=== PATIENT | female | born 1975 | race Caucasian/White ===

== ENCOUNTER 2024-06-01 14:59 | Emergency (ER) | payer SELFPAY ==
[2024-06-01 15:04] VITALS: BP 109/93; PULSE 92; TEMP 36.9; O2SAT 98; BMI 45.7
--- NOTE | 2024-06-01 15:50 | XR_ITS ---
The [address] [address] Patient Name: NADIYA MEZA MRN: [id number] date: 1975 Sex: F Assigned Patient Location: ER Current Patient Location: ER Accession/Order Number: [id number] Exam Date: 06/01/2024 15:40 Report Date: 06/01/2024 16:17 At the request of: RODOLFO BOWERS Procedure: XR knee LT 4V EXAM: XR knee LT 4V HISTORY: felt a pop and c/o pain COMPARISON: None. TECHNIQUE: 4 views of the left knee were obtained. FINDINGS: There is no evidence of an acute fracture or dislocation. The joint spaces are intact. No osteochondral injury is identified. A mild suprapatellar joint effusion is suggested and may be present. The soft tissues otherwise appear unremarkable. XR/XR knee LT 4V IMPRESSION: No acute fracture or dislocation. No significant degenerative changes are present. A mild joint effusion is suggested and may be present. Electronically authenticated by: JENI MENDOZA Date: 06/01/2024 16:17
[2024-06-01] MEDS: HYDROCODONE/ACET 5-325 MG TABLET 1 TAB PO (16:55)
[2024-06-01] MEDS: IBUPROFEN 600 MG TABLET PO (16:55)
[2024-06-01 17:15] VITALS: BP 136/89; PULSE 81; O2SAT 99
--- NOTE | 2024-06-01 18:32 | ED_ITS ---
HPI HPI - Extremity Injury (Lower) General Chief Complaint: Extremity Injury, Lower Stated Complaint: LOWER EXTREMITY PAIN Time Seen by Provider: 06/01/24 16:24 Source: patient and family (ex ) Mode of arrival: walk-in Limitations: no limitations History of Present Illness HPI Narrative: 48-year-old female presents with ex- with complaint of left knee pain. Acute onset when she got out of bed. States she felt a pop and has been having difficulty bearing weight or walking. Locating pain just medial of her kneecap with some associated swelling. There is associated tenderness. Denies any sensory changes, paresthesias. Quality:?As above Severity:?Moderate Timing:?As above, constant Context: Normal setting and activity? Modifying factors:?Pain worse with palpation, movement Associated symptoms: Swelling Related Data Previous Rx's ?Medication ?Instructions ?Recorded hydrocodone 5 mg-acetaminophen 325 1 tab PO Q8H PRN pain 3 days #8 06/01/24 mg tablet tabs ibuprofen 600 mg tablet 600 mg PO Q8H PRN pain #20 tabs 06/01/24 Allergies Allergy/AdvReac Type Severity Reaction Status Date / Time Latex, Natural Rubber Allergy Severe Hives Verified 06/01/24 15:08 Opioid HPI Opioid Management Most Recent Pain and Opioid Data: Last Pain Scale 8 06/01/24 16:55 06/01/24 Last MAR Pain Assessment 06/01/24 16:55 Review of Systems ROS Narrative CONST: Denies activity change, weakness MS: Denies arthralgias, swelling.? Denies myalgias SKIN: Denies color change, wound NEURO: Denies numbness, paresthesias, weakness PFSH PFSH Social History Little interest or pleasure in doing things: not at all Feeling down, depressed, or hopeless: not at all Exam Narrative Exam Narrative: Vital signs noted Nurses notes reviewed CONST: Nontoxic, well appearing, well nourished, in no distress.? HENT: normocephalic, atraumatic. CV: 2+ palpable left DP pulse MS: Left knee: +tenderness,swelling to the area of her knee in between the m edial border of the patella and the medial joint line.? No tenderness to the patella, lateral joint line, posterior fossa.? No ecchymosis, discoloration, crepitus, deformity, instability, warmth.? Active ROM is limited due to pain and swelling, but able to perform to a degree.? Strength 5/5 NEURO: Sensory intact throughout and distal to the injury SKIN: intact, warm, dry.? No wound PSYCHIATRIC: normal mood, affect Constitutional Vital Signs, click to edit/add: Last Vital Signs Temp 98.4 F 06/01/24 15:04 Pulse 81 06/01/24 17:15 Resp 16 06/01/24 17:15 BP 136/89 06/01/24 17:15 Pulse Ox 99 06/01/24 17:15 O2 Del Method Room Air 06/01/24 17:15 Course Vital Signs Vital signs: Vital Signs Temperature 98.4 F 06/01/24 15:04 Pulse Rate 92 H 06/01/24 15:04 Respiratory Rate 20 06/01/24 15:04 Blood Pressure 109/93 H 06/01/24 15:04 Pulse Oximetry 98 06/01/24 15:04 Oxygen Delivery Method Room Air 06/01/24 15:04 Temperature 98.4 F 06/01/24 15:04 Pulse Rate 81 06/01/24 17:15 Respiratory Rate 16 06/01/24 17:15 Blood Pressure 136/89 06/01/24 17:15 Pulse Oximetry 99 06/01/24 17:15 Oxygen Delivery Method Room Air 06/01/24 17:15 MDM - Extremity Injury (Lower) MDM Narrative Medical decision making narrative: This is a pleasant 48-year-old female who presents to the emergency department for evaluation of left knee pain On arrival, afebrile, vital signs stable. On exam, nontoxic, well appearing patient, in no apparent distress. She has swelling, tenderness just medial to the patella. No tenderness to the medial or lateral joint lines, posterior fossa, patella. No instability. Range of motion limited due to pain, but can perform to a degree. Neurovascularly intact. Left knee x-ray imaging, per radiologist reveals no acute findings Favor left knee injury, rule out meniscus injury Fracture, dislocation less likely based on imaging MCL, LCL sprain less likely based on exam History and Record Review Discussion with independent historian: Ex- Management Independent interpretation: Left knee x-ray: No fracture, dislocation, or other acute abnormality noted Re-Evaluation: See ED Course Disposition ? The patient was discharged. Prescriptions sent to pharmacy: [facility] Patient placed in knee immobilizer, given crutches Plan: Patient will be discharged to home. Condition at time of disposition: stable, improved. ? Advised to follow up with referral provider, name and number placed on discharge paperwork. Advised to return for any worsening and/or development of new, concerning signs or symptoms PLEASE NOTE: Portions of the medical record may have been produced using electronic manager advanced and may contain errors with respect to translation of words which may not have been identified prior to finalization of the chart. Imaging Data Right knee x-ray: Radiologist's impression: ITS Impressions Knee X-Ray 06/01/24 15:50 IMPRESSION: No acute fracture or dislocation. No significant degenerative changes are present. A mild joint effusion is suggested and may be present. Electronically authenticated by: JENI MENDOZA Date: 06/01/2024 16:17 Discharge Plan Discharge Stand Alone Forms: Work/School Release Chief Complaint: Extremity Injury, Lower Clinical Impression: Acute pain of left knee Injury of knee, left Qualifiers: Encounter type: initial encounter Qualified Code(s): S89.92XA - Unspecified injury of left lower leg, initial encounter Patient Disposition: Home, Self-Care Time of Disposition Decision: 16:41 Condition: Good Mode of Transportation: Private Vehicle Prescriptions / Home Meds: New hydrocodone-acetaminophen 5-325 mg tablet 1 tab PO Q8H PRN (Reason: pain) 3 Days Qty: 8 0RF ibuprofen 600 mg tablet 600 mg PO Q8H PRN (Reason: pain) Qty: 20 0RF Print Language: Citizen Of [place] Instructions: Knee Pain (ED), P.R.I.C.E. Treatment (ED) Referrals: Deon Allison MD [Physician] - 1 week Discharge Date/Time: 06/01/24 17:15
== END 2024-06-01 17:15 | disposition home or self-care (01) ==
PROVIDERS: Emergency Provider Emergency Medicine; PCP Nurse Practitioner
DX: S89.92XA Unspecified injury of left lower leg, initial encounter (principal); X58.XXXA Exposure to other specified factors, initial encounter; M25.562 Pain in left knee
CPT/HCPCS: 73564; 99284

== ENCOUNTER 2024-06-24 08:16 | Outpatient (OUT) | payer BC, SELFPAY ==
--- NOTE | 2024-06-24 08:20 | MR_ITS ---
[place] [id number] Patient Name: NADIYA MEZA MRN: [id number] date: 1975 Sex: F Assigned Patient Location: MRI Current Patient Location: MRI Accession/Order Number: [id number] Exam Date: 06/24/2024 08:40 Report Date: 06/24/2024 11:59 At the request of: EM RAMOS Procedure: MR knee LT wo con EXAMINATION: MR knee LT wo con HISTORY: Internal Derangement Of Left Knee COMPARISON: No relevant comparison available. TECHNIQUE: A complete multi-planar MRI was performed. FINDINGS: MEDIAL COMPARTMENT MEDIAL MENISCUS: Oblique tear extending into the inferior surface of the posterior horn. CARTILAGE: No visible defect. BONES: r large area of bone edema in the medial aspect of the medial femoral condyle measuring 2.8 x 1.2 cm coronal image 18 and 3.1 cm in AP dimension sagittal image 23 MCL AND MEDIAL CAPSULE: Normal medial collateral ligament and medial capsule. LATERAL COMPARTMENT LATERAL MENISCUS: Suspected vertical tear of the body is visualized on sagittal image 8 coronal image 19 CARTILAGE: No visible defect. BONES: No marrow pathology, fracture, or significant arthropathy. LCL/POSTEROLAT COMPLEX: Normal lateral collateral ligament, fascicles, lateral capsule and ligaments. ANTERIOR COMPARTMENT PATELLA: No marrow pathology, fracture, or significant arthropathy. CARTILAGE: No visible defect. TENDONS: Normal. EFFUSION: None. No synovitis or loose bodies. ACL: Mild edema consistent with a diffuse strain PCL: Findings are most consistent with a proximal partial tear. MENISCOFEMORAL: Normal meniscofemoral ligaments. OTHER: Negative. MR/MR knee LT wo con IMPRESSION: Large area of bone edema in the medial aspect of the medial femoral condyle Oblique tear posterior horn medial meniscus Suspected vertical tear body of the lateral meniscus Partial tear of the proximal posterior cruciate ligament Strain of the anterior cruciate ligament Electronically authenticated by: SUREKHA CHRISTIANSON Date: 06/24/2024 11:59
--- OUTSIDE RECORDS SUMMARY | 2024-06-24 08:22 | XMS_ITS | CCD ---
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 Name Role Phone Zulay Berrios Unavailable Yris Shepard Unavailable Jean-Paul Owen Unavailable ZULAY BERRIOS Attending Unavailable ZULAY BERRIOS Consulting Unavailable AGUSTINA, ZULAY Primary Care Unavailable AGUSTINA, ZULAY Admitting Unavailable AGUSTINA, ZULAY Attending Unavailable AGUSTINA, ZULAY Consulting Unavailable AGUSTINA, ZULAY Primary Care Unavailable AGUSTINA, ZULAY Admitting Unavailable AGUSTINA, ZULAY Admitting Unavailable AGUSTINA, ZULAY Attending Unavailable ZULAY BERRIOS Consulting Unavailable AGUSTINA, ZULAY Primary Care Unavailable ANUP RODRIGUEZ Attending Unavailable ANUP RODRIGUEZ Admitting Unavailable KAROL LANDEROS Unavailable AGUSTINA, ZULAY Primary Care Unavailable ANUP RODRIGUEZ Consulting Unavailable Bambi Chavira Primary Care Provid er BAMBI RODRIGUEZ Primary Care Unavailable KAROL GARCIA Attending Unavailab VallecilloCBambi Primary Care Provider Laron Marquez MD Attending Provider Bambi Rodriguez Primary Care Unavailable Asaad, Imad Admitting Unavailable Asaad, Imad Attending Unavailable Bambi Rodriguez Primary Care Unavailable Asaad, Imad Admitting Unavailable Asaad, Imad Attending Unavailable BAMBI RODRIGUEZ Attending Unavailable BAMBI RODRIGUEZ Referring Unavailable BAMBI RODRIGUEZ Primary Care Unavailable BAMBI RODRIGUEZ Attending Unavailable BAMBI RODRIGUEZ Referring Unavailable BAMBI RODRIGUEZ Primary Care Unavailable Allergies Allergy Classification Reported Allergen(s) Allergy Type Date of Onset Reaction(s) Facility (11 sources) Adhesive agent; Translations: [ADHESIVE] Propensity to adverse reactions to drug 3 Rash [facility] (13 sources) Latex; Translations: [LATEX] Propensity to adverse reactions to drug 2 Anaphylaxis [facility] (3 sources) venom-honey bee; Translations: [venom-honey bee] Allergy to substance 4 Swelling [facility] (1 source) Latex Drug allergy (disorder) 4 [facility] Repository Medications Current Medications Medication Drug Class(es) Dates Sig (Normalized) Sig (Original) acetaminophen 325 mg oral tablet (9 sources) Start: 04-26-2023 take 2 tablets by mouth every six hours as needed for pain acetaminophen (TYLENOL) 325 mg tablet Take 2 tablets (650 mg total) by mouth every 6 (six) hours as needed for pain. 100 tablet 2 04/26/2023 Active acetaminophen 325 mg / HYDROcodone bitartrate 5 mg oral tablet (1 source) Opioid Agonist Start: 06-01-2024 take 1 tablet by mouth every eight hours as needed for pain HYDROcodone-acetam inophen (NORCO) 5-325 mg per tablet Take 1 tablet by mouth every 8 (eight) hours as needed for pain. Max Daily Amount: 3 tablets 06/01/2024 Active [id number] actuat albuterol 0.09 mg/actuat metered dose inhaler (9 sources) beta2-Adrenergic Agonist take 2 puff(s) by inhalation every six hours as needed for wheezing albuterol (PROVENTIL HFA;VENTOLIN HFA) 90 mcg/actuation inhaler Inhale 2 puffs every 6 (six) hours as needed for wheezing. Active amLODIPine 5 mg oral tablet (7 sources) Dihydropyridine Calcium Channel Mary Start: 10-16-2021 take 1 tablet by mouth every twenty-four hours amLODIPine Besylate 5 MG 1 tablet Orally Once a day for 30 days Oct, Active Start: 10-16-2021 take 1 tablet by lazaro th every twenty-four hours amLODIPine Besylate 2.5 MG 1 tablet Orally Once a day for 30 day(s) Oct, Active ascorbic acid 500 mg oral tablet (5 sources) Vitamin C Start: 02-27-2023 take 1 tablet by mouth in the morning, then take 1 tablet by mouth at mealtime ascorbic acid (VITAMIN C) 500 mg tablet Indications: Iron deficiency anemia due to chronic blood loss Take 1 tablet (500 mg total) by mouth in the morning and 1 tablet (500 mg total) in the evening. Take with meals. 60 tablet 3 02/27/2023 Active cetirizine hydrochloride 10 mg oral capsule (2 sources) Histamine-1 Receptor Antagonist Start: 03-26-2024 take 1 capsule by mouth once daily as needed Cetirizine (Zyrtec) 10 mg capsule Active 10 MG PO Daily as needed March 26, 2024 12:00am clotrimazole 0.01 mg/mg topical ointment (8 sources) Azole Antifungal Start: 12-13-2020 Alevazol 1 % 1 application Externally Twice a day for 28 day(s) Dec, Active Start: 12-13-2020 esomeprazole 40 mg delayed release oral capsule (14 sources) Proton Pump Inhibitor Start: 06-08-2024 take 1 capsule by mouth once daily before breakfast esomeprazole (NexIUM) 40 mg capsule Indications: GERD without esophagitis Take 1 capsule (40 mg total) by mouth every morning before breakfast. 90 capsule 1 06/08/2024 Active Start: 03-26-2024 take 1 capsule by [facility] twice daily Esomeprazole Magnesium (Nexium) 20 mg capsule,delayed release(DR/EC) Active 20 MG PO Twice daily March 26, 2024 12:00am Start: 12-04-2023 End: 06-08-2024 take 1 capsule by mouth once daily before breakfast esomeprazole (NexIUM) 40 mg capsule Indications: GERD without esophagitis take 1 capsule by mouth every morning before breakfast 90 capsule 1 02/11/2024 06/08/2024 Discontinued (Reorder) Start: 02-27-2023 End: 06-03-2023 take 1 capsule by mouth once daily before breakfast esomeprazole (NexIUM) 40 mg capsule Indications: gastroesophageal reflux disease Take 1 capsule (40 mg total) by mouth every morning before breakfast Indications: gastroesophageal reflux disease. 90 capsule 1 06/03/2023 Active ferrous sulfate 325 mg oral tablet (20 sources) Start: 05-14-2024 End: 06-08-2024 take 1 tablet by mouth twice daily at mealtime FeroSuL 325 mg (65 mg iron) tablet Indications: Microcytic anemia TAKE 1 TABLET BY MOUTH TWICE DAILY (IN THE MORNING and IN THE EVENING) WITH MEALS 60 tablet 3 05/14/2024 06/08/2024 Discontinued (Therapy completed) Start: 03-26-2024 take 2 tablets by mo [facility] once daily Ferrous Sulfate (Ferosul) 325 mg (65 mg iron) tablet Active 325 MG PO March 26, 2024 12:00am take 2 tablets daily Start: 12-09-2023 End: 05-14-2024 take 1 tablet by mouth in the morning, then take 1 tablet by mouth at mealtime ferrous sulfate 325 (65 FE) mg tablet Indications: Microcytic anemia Take 1 tablet (325 mg total) by mouth in the morning and 1 tablet (325 mg total) in the evening. Take with meals. 60 tablet 3 12/09/2023 05/14/2024 Discontinued Start: 02-27-2023 take 1 tablet by lazaro in the morning, then take 1 tablet by mouth at mealtime ferrous sulfate 325 (65 FE) mg EC tablet Indications: Iron deficiency anemia due to chronic blood loss Take 1 tablet (325 mg total) by mouth in the morning and 1 tablet (325 mg total) in the evening. Take with meals. 60 tablet 3 02/27/2023 Active Start: 04-10-2021 take 1 tablet by lazaro every twelve hours Ferrous Sulfate 325 (65 Fe) MG 1 tablet Orally bid for 30 day(s) Mar, Not-Taking Start: 04-10-2021 take 1 tablet by lazaro twice daily Ferrous Sulfate 325 (65 Fe) MG 1 tablet Orally bid for 30 day(s) Mar, Not-Taking Start: 04-10-2021 take 1 tablet by lazaro twice daily Ferrous Sulfate 325 (65 Fe) MG 1 tablet Orally bid for 30 day(s) Mar, Active ibuprofen 600 mg oral tablet (10 sources) Nonsteroidal Anti-inflammatory Drug Start: 06-01-2024 take 1 tablet by mouth every eight hours as needed for pain ibuprofen (MOTRIN) 600 mg tablet Take 1 tablet (600 mg total) by mouth every 8 (eight) hours as needed for pain. 06/01/2024 Active Start: 01-24-2024 End: 06-08-2024 take 1 tablet by mouth three times daily ibuprofen (MOTRIN) 800 mg tablet Take 1 tablet (800 mg total) by mouth 3 (three) times a day. 21 tablet 01/24/2024 06/08/2024 Discontinued (Therapy completed) Start: 04-26-2023 take 1 tablet by lazaro th every eight hours as needed for pain ibuprofen (MOTRIN) 800 mg tablet Take 1 tablet (800 mg total) by mouth every 8 (eight) hours as needed for pain. 30 tablet 0 04/26/2023 Active losartan potassium 100 mg oral tablet (20 sources) Angiotensin 2 Receptor Mary Start: 06-08-2024 take 1 tablet by mouth in the morning losartan (COZAAR) 100 mg tablet Indications: hypertension Take 1 tablet (100 mg total) by mouth in the morning. Indications: high blood pressure. 90 tablet 1 06/08/2024 Active Start: 12-04-2023 End: 06-08-2024 take 1 tablet by mouth in the morning losartan (COZAAR) 100 mg tablet Indications: hypertension Take 1 tablet (100 mg total) by mouth in the morning. Indications: high blood pressure. 90 tablet 1 12/04/2023 06/08/2024 Discontinued (Reorder) Start: 02-27-2023 End: 06-03-2023 take 1 tablet by mouth in the morning losartan (COZAAR) 100 mg tablet Indications: hypertension Take 1 tablet (100 mg total) by mouth in the morning. Indications: high blood pressure. 90 tablet 1 06/03/2023 Active Start: 08-17-2020 take 1 tablet by lazaro th every twenty-four hours Losartan Potassium 100 MG 1 tablet Orally Once a day for 30 days Aug, Active 24 hr metoprolol succinate 25 mg extended release oral tablet (20 sources) beta-Adrenergic Mary Start: 12-04-2023 End: 03-16-2024 take 1 tablet by mouth every twenty-four hours at bedtime metoprolol succinate XL (TOPROL XL) 25 mg 24 hr tablet Indications: Benign essential HTN TAKE 1 TABLET BY MOUTH IN THE MORNING and AT BEDTIME 180 tablet 1 03/16/2024 Active Start: 02-27-2023 End: 06-03-2023 take 1 tablet by mouth every twenty-four hours at bedtime metoprolol succinate XL (TOPROL XL) 25 mg 24 hr tablet Indications: Benign essential HTN Take 1 tablet (25 mg total) by mouth in the morning and at bedtime. 180 tablet 1 06/03/2023 Active Start: 09-13-2020 take 1 tablet by lazaro th every twelve hours Toprol XL 50 MG 1 tablet Orally bid for 30 days September, Active Start: 09-13-2020 take 1 tablet by lazaro th every twenty-four hours Toprol XL 50 MG 1 tablet Orally Once a day for 30 days September, Active microencapsulated potassium chloride 10 meq extended release oral tablet (12 sources) Start: 06-08-2024 potassium chlo ride (K-TAB,KLOR-CON) 10 MEQ CR tablet Indications: Hypokalemia Take 1 tablet (10 mEq total) by mouth in the morning. 90 tablet 1 06/08/2024 Active Start: 12-04-2023 End: 06-08-2024 potassium chloride (K-TAB,KL OR-CON) 10 MEQ CR tablet Indications: Hypokalemia Take 1 tablet (10 mEq total) by mouth in the morning. 90 tablet 1 12/04/2023 06/08/2024 Discontinued (Reorder) Start: 06-03-2023 potassium chlo ride (K-TAB,KLOR-CON) 10 MEQ CR tablet Indications: Hypokalemia Take 1 tablet (10 mEq total) by mouth in the morning. 90 tablet 1 06/03/2023 Active Start: 11-01-2020 End: 06-03-2023 take 1 tablet by mouth in the morning potassium chloride (KLOR-CON M 20) 20 MEQ CR tablet Take 1 tablet (20 mEq total) by mouth in the morning and 1 tablet (20 mEq total) before bedtime. 0 06/03/2023 Discontinued (Reorder) Potassium Chloride 10 mEq tablet,ER particles/crystals (2 sources) Start: 03-26-2024 Potassium Chlo ride 10 mEq tablet,ER particles/crystals Active 10 MEQ PO March 26, 2024 12:00am rosuvastatin 10 mg oral capsule (6 sources) HMG-CoA Reductase Inhibitor Start: 03-26-2024 Rosuvastatin 10 mg t ablet Active 10 MG PO March 26, 2024 12:00am Start: 12-09-2023 take 1 tablet by lazaro th in the morning rosuvastatin (CRESTOR) 10 mg tablet Indications: Mixed hyperlipidemia Take 1 tablet (10 mg total) by mouth in the morning. 90 tablet 3 12/09/2023 Active sertraline 50 mg oral tablet (20 sources) Serotonin Reuptake Inhibitor Start: 06-08-2024 take 1 tablet by mouth once daily at bedtime sertraline (ZOLOFT) 50 mg tablet Indications: anxiety with depression Take 1 tablet (50 mg total) by mouth once daily at bedtime Indications: anxiousness associated with depression. 90 tablet 1 06/08/2024 Active Start: 12-04-2023 End: 06-08-2024 take 1 tablet by mouth once daily at bedtime sertraline (ZOLOFT) 50 mg tablet Indications: anxiety with depression Take 1 tablet (50 mg total) by mouth once daily at bedtime Indications: anxiousness associated with depression. 90 tablet 1 12/04/2023 06/08/2024 Discontinued (Reorder) Start: 02-27-2023 End: 06-03-2023 take 1 tablet by mouth once daily at bedtime sertraline (ZOLOFT) 50 mg tablet Indications: anxiety with depression Take 1 tablet (50 mg total) by mouth once daily at bedtime Indications: anxiousness associated with depression. 90 tablet 1 06/03/2023 Active Start: 08-16-2020 take 1 tablet by lazaro th once daily Sertraline HCl 50 MG 1 tablet Orally Once a day for 90 days Aug, Active terbinafine hydrochloride 10 mg/ml topical cream (4 sources) Allylamine Antifungal Start: 12-04-2023 terbinafine (LamISIL) 1 % cream Indications: Tinea pedis of both feet Apply 1 Application topically in the morning and 1 Application before bedtime. 30 g 3 12/04/2023 Active traZODone hydrochloride 100 mg oral tablet (9 sources) Serotonin Reuptake Inhibitor Start: 12-04-2023 End: 06-08-2024 take 1 tablet by mouth once daily traZODone (DESYREL) 100 mg tablet Indications: Psychophysiological insomnia Take 1 tablet (100 mg total) by mouth nightly. 90 tablet 1 12/04/2023 06/08/2024 Discontinued (Therapy completed) Start: 04-22-2023 take 1 tablet by lazaro th once daily traZODone (DESYREL) 50 mg tablet Indications: Psychophysiological insomnia Take 1 tablet (50 mg total) by mouth nightly. 30 tablet 1 04/22/2023 Active Completed/Discontinued Medications Medication Drug Class(es) Dates Sig (Normalized) Sig (Original) docusate sodium 100 mg oral capsule (1 source) Start: 04-26-2023 End: 06-03-2023 take 1 capsule by mouth in the morning, then take 1 capsule by mouth at bedtime docusate sodium (COLACE) 100 mg capsule Take 1 capsule (100 mg total) by mouth in the morning and 1 capsule (100 mg total) before bedtime. 60 capsule 0 04/26/2023 06/03/2023 Discontinued (Therapy completed) Esomeprazole Magnesium 40 mg capsule,delayed release(DR/EC) (2 sources) Start: 03-26-2024 End: 03-26-2024 Esomeprazole Magnesium 40 mg capsule,delayed release(DR/EC) Discontinued 40 MG PO March 26, 2024 12:00am March 26, 2024 9:47am Problems Active Problems Problem Classification Problem Date Documented Da te Episodic/Chronic Anxiety disorders (18 sources) Generalized anxiety disorder; Translations: [Generalized anxiety disorder] Onset: 1 Resolved: 2 Chronic Deficiency and other anemia (20 sources) Iron deficiency anemia due to blood loss; Translations: [Iron deficiency anemia secondary to blood loss (chronic)] Onset: 3 01-11-2023 Chronic Deficiency and other anemia (1 source) Iron deficiency anemia secondary to blood loss (chronic); Translations: [Iron deficiency anemia secondary to blood loss (chronic)] Onset: 3 Chronic Esophageal disorders (9 sources) Gastroesophageal reflux disease without esophagitis; Translations: [Gastro-esophageal reflux disease without esophagitis] Onset: 4 06-03-2023 Chronic Essential hypertension (20 sources) Essential hypertension; Translations: [Essential (primary) hypertension] Onset: 1 Resolved: 2 Chronic Menopausal disorders (13 sources) Menorrhagia; Translations: [Excessive bleeding in the premenopausal period] Chronic Menstrual disorders (13 sources) Menometrorrhagia; Translations: [Excessive and frequent menstruation with irregular cycle] Chronic Miscellaneous mental health disorders (1 source) Psychophysiologic insomnia; Translations: [Psychophysiologic insomnia] Onset: 4 Chronic Mood disorders (1 source) Depression Onset: 5 Chronic Mood disorders (10 sources) Mood disorders; Translations: [Depression, unspecified] Onset: 4 Resolved: 4 06-03-2023 Nausea and vomiting (5 sources) Nausea and vomiting; Translations: [Nausea with vomiting, unspecified] Onset: 4 03-26-2024 Episodic Other aftercare (1 source) Surgical follow-up; Translations: [Encounter for follow-up examination after completed treatment for conditions other than malignant neoplasm] 06-06-2023 Episodic Other gastrointestinal disorders (11 sources) Diarrhea; Translations: [Diarrhea, unspecified] Episodic Other gastrointestinal disorders (2 sources) Loose stool; Translations: [Other fecal abnormalities] 03-26-2024 Episodic Other gastrointestinal disorders (1 source) Diarrhea, unspecified; Translations: [Diarrhea, unspecified] Onset: 4 Episodic Other non-traumatic joint disorders (1 source) Effusion of joint of left knee; Translations: [Effusion, left knee] 06-08-2024 Episodic Skin and subcutaneous tissue infections (2 sources) Cutaneous abscess of trunk, unspecified; Translations: [Abscess] Onset: 4 Episodic Unclassified (3 sources) CONTACT W/AND (SUSP) EXPOS COVID-19; Translations: [CONTACT W/AND (SUSP) EXPOS COVID-19] Onset: 1 Unclassified (1 source) Wound Check Onset: 4 Unclassified (1 source) Annual Exam Onset: 4 Viral infection (3 sources) COVID-19; Translations: [COVID-19] Onset: 2 Resolved: 2 Past or Other Problems Problem Classification Problem Date Documented Da te Episodic/Chronic Biliary tract disease (9 sources) Acute cholecystitis; Translations: [Acute cholecystitis] Onset: 09-13-2021 Resolved: 06-06-2023 09-13-2021 Episodic Complications of surgical procedures or medical care (9 sources) Leakage of bile; Translations: [Other postprocedural complications and disorders of digestive system] Onset: 09-15-2021 Resolved: 06-06-2023 09-15-2021 Episodic Deficiency and other anemia (11 sources) Microcytic anemia; Translations: [Iron deficiency anemia, unspecified] Onset: 01-11-2023 06-03-2023 Episodic Deficiency and other anemia (1 source) Iron deficiency anemia, unspecified; Translations: [Iron deficiency anemia, unspecified] Onset: 01-11-2023 Episodic Fluid and electrolyte disorders (8 sources) Hypokalemia; Translations: [Hypokalemia] Onset: 03-13-2021 Resolved: 03-13-2021 Episodic Immunizations and screening for infectious disease (1 source) Contact with and (suspected) exposure to other viral communicable diseases Onset: 05-18-2021 Resolved: 05-18-2021 Episodic Mycoses (1 source) Tinea pedis; Translations: [Tinea pedis] Onset: 12-04-2023 Episodic Noninfectious gastroenteritis (1 source) Noninfective gastroenteritis and colitis, unspecified Onset: 03-13-2021 Resolved: 03-13-2021 Episodic Nonspecific chest pain (4 sources) Chest pain, unspecified; Translations: [CHEST PAIN UNSPECIFIED] Onset: 05-29-2021 Episodic Other aftercare (1 source) 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; 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] Onset: 05-30-2021 Episodic Other and unspecified benign neoplasm (9 sources) Polyp of sigmoid colon; Translations: [Polyp of colon] Onset: 12-19-2022 12-19-2022 Episodic Other gastrointestinal disorders (4 sources) Other fecal abnormalities; Translations: [Abnormal feces] Onset: 12-04-2023 03-26-2024 Episodic Other screening for suspected conditions (not mental disorders or infectious disease) (10 sources) Patient encounter status; Translations: [Encounter for screening for malignant neoplasm of colon] Onset: 11-27-2022 Resolved: 06-06-2023 11-27-2022 Episodic Other upper respiratory disease (1 source) Nasal congestion Onset: 11-21-2021 Resolved: 11-21-2021 Episodic Unclassified (1 source) CONTACT W/AND (SUSP) EXPOS COVID-19; Translations: [CONTACT W/AND (SUSP) EXPOS COVID-19] Onset: 01-09-2021 Unclassified (9 sources) Onset: 06-03-2023 Resolved: 06-08-2024 06-03-2023 Results Test Name Value Interpretation Reference Range Facility Pathology Request for Lab Co rpon 04-15-2024 Pathology Request for Lab Radha Normal [facility] Comment on above: Order Comment: PATHO LOGY GI SPECIMEN Result Comment: See report. Scanned copy available in EMR. PERFORMED BY: [place] [address] PATHOLOGIST CIVIL ENGINEERING TEACHER CALE GALLAGHER M.D. Performed By: #### P ATH TO [facility] #### [address] C reactive protein [Mass/vol ume] in Serum or PlasmaOrdered By: Laron Marquez on 03-26-2024 CRP [Mass/Vol] C reactive protein [Mass/volume] in Serum or Plasma High 0.0-0.5 [facility] C-Reactive Proteinon 024 C-Reactive Protein 2.3 mg/dL High 0.0-0.5 [facility] Comment on above: Performed By: #### C RP, TSH3, ESR #### [facility] [address] [place] [address] #### CELIAC, HIV SCREEN #### [facility] , Calprotectin, Fecalon 2023 Calprotectin, Fecal 128 High 0-120 [facility] Comment on above: Result Comment: Conc entration Interpretation Follow-Up < 5 - 50 ug/g Normal None >50 -120 ug/g Borderline Re-evaluate in 4-6 weeks >120 ug/g Abnormal Repeat as clinically indicated Performed at: - [facility] [id number] [place] Selector: Júnior Ellis MD, Phone: [phone] PERFORMED BY: [address] [id number] PATHOLOGIST CIVIL ENGINEERING TEACHER CALE GALLAGHER M.D. Performed By: #### C DT #### [address] #### CALPROTECT #### [facility] , Celiacon 03-26-2024 Deamidated Gliadin Abs, IgA 4 Normal 0-19 [facility] Comment on above: Result Comment: Nega tive 0 - 19 Weak Positive 20 - 30 Moderate to Strong Positive >30 Performed By: #### C RP, TSH3, ESR #### [place] [address] [place] #### CELIAC, HIV SCREEN #### [facility] , Deamidated Gliadin Abs, IgG 2 Normal 0-19 [facility] Comment on above: Result Comment: Nega tive 0 - 19 Weak Positive 20 - 30 Moderate to Strong Positive >30 Performed By: #### C RP, TSH3, ESR #### [address] #### CELIAC, HIV SCREEN #### [facility] , Endomysial Antibody IgA Negative Normal Negative [facility] Comment on above: Performed By: #### C RP, TSH3, ESR #### [place] [address] [place] #### CELIAC, HIV SCREEN #### [facility] , Immunoglobulin A, Qn, Serum 355 mg/dL High 87-352 [facility] Comment on above: Result Comment: Perf ormed at: - [facility] [address] [id number] [place] Selector: Toni Doyle PhD, Phone: [phone] Performed By: #### C RP, TSH3, ESR #### [place] [address] [place] #### CELIAC, HIV SCREEN #### [facility] , T-Transglutaminase (tTG) IgA <2 Normal 0-3 [facility] Comment on above: Result Comment: Nega tive 0 - 3 Weak Positive 4 - 10 Positive >10 Tissue Transglutaminase (tTG) has been identified as the endomysial antigen. Studies have demonstr- ated that endomysial IgA antibodies have over 99% specificity for gluten sensitive enteropathy. Performed By: #### C RP, TSH3, ESR #### [place] [address] [place] #### CELIAC, HIV SCREEN #### [facility] , T-Transglutaminase (tTG) IgG 3 Normal 0-5 [facility] Comment on above: Result Comment: Nega tive 0 - 5 Weak Positive 6 - 9 Positive >9 Performed By: #### C RP, TSH3, ESR #### [place] [address] [place] #### CELIAC, HIV SCREEN #### [facility] , Clostridioides difficile tox in B tcdB gene [Presence] in Stool by JAMIE with probe deteOrdered By: Laron Marquez on 03-26-2024 C. difficile toxin B tcdB gene JAMIE+probe Ql (Stl) Clostridioides difficile toxin B tcdB gene [Presence] in Stool by JAMIE with probe dete Negative [facility] Comment on above: Testing performed by RT-PCR Clostridium Difficileon 03-13 Clostridium Difficile Positive Invalid Interpretation Code Negative [facility] Comment on above: Order Comment: Resul ts called at 0909 on 03/27/24 Result Comment: Test ing performed by RT-PCR PERFORMED BY: [place] [address] PATHOLOGIST CIVIL ENGINEERING TEACHER CALE GALLAGHER M.D. Performed By: #### C DT #### [place] [address] [place] #### CALPROTECT #### [facility] , Erythrocyte Sedimentation Ra anika 03-26-2024 ESR (Bld) [Velocity] 38 mm/h High 0-19 [facility] Comment on above: Result Comment: PERF ORMED BY: [place] [address] PATHOLOGIST CIVIL ENGINEERING TEACHER CALE GALLAGHER M.D. Performed By: #### C RP, TSH3, ESR #### [address] #### CELIAC, HIV SCREEN #### [facility] , Erythrocyte sedimentation ra te by Photometric methodOrdered By: Imad Asaad on 03-26-2024 ESR Photometric method (Bld) [Velocity] Erythrocyte sedimentation rate by Photometric method High 0-19 [facility] HIV 1/O/2 Antigen/Antibodyon 03-26-2024 HIV Screen 4th Generation Non-Reactive Normal Non Reactive [facility] Comment on above: Result Comment: HIV- 1/HIV-2 antibodies and HIV-1 p24 antigen were NOT detected. There is no laboratory evidence of HIV infection. HIV Negative Performed at: [address] [id number] [place] Selector: Toni Doyle PhD, Phone: [phone] PERFORMED BY: [place] [address] PATHOLOGIST CIVIL ENGINEERING TEACHER CALE GALLAGHER M.D. Performed By: #### C RP, TSH3, ESR #### [address] #### CELIAC, HIV SCREEN #### [facility] , Thyroid Stimulating Hormoneo n 03-26-2024 TSH Qn 1.21 m[IU]/L Normal 0.45-5.33 [facility] Comment on above: Result Comment: PERF ORMED BY: [place] [address] PATHOLOGIST CIVIL ENGINEERING TEACHER CALE GALLAGHER M.D. Performed By: #### C RP, TSH3, ESR #### [place] [address] [place] #### CELIAC, HIV SCREEN #### [facility] , Thyrotropin [Units/volume] i n Serum or PlasmaOrdered By: Imad Asaad on 03-26-2024 TSH Qn Thyrotropin [Units/volume] in Serum or Plasma 0.45-5.33 [facility] SUPERFICIAL WOUND CULTUREon 01-24-2024 Bacteria identified Aer cx Nom (Wound) GRAM STAIN >25 WHITE BLOOD CELLS/LPF 0 SQUAMOUS EPITHELIAL CELLS/LPF MANY GRAM POSITIVE COCCI IN PAIRS CULTURE RESULTS NO GROWTH 2 DAYS Normal [facility] Comment on above: Performed By: #### 6 32-0 #### [facility] ([id number]) [address] [place] [address], [address] [place] [address] Surgical Pathologyon 023 Surgical Pathology Normal [facility] Comment on above: Result Comment: [facility] [address] [place] [address] Surgical Pathology Consultation Patient Name:NADIYA MEZA:1975 (Age: 47)Gender:FTaken:04/26/2023Reported:05/09/2023hysician(s):Sander Lopes M.D. ([phone])Copy To: Rec. #:[id number]: #[id number] Final Pathologic Diagnosis Uterus, cervix and bilateral fallopian tubes, total hysterectomy and bilateral salpingectomy: Uterus (158 g) showing three intramural leiomyomas (0.7 to 1.5 cm) with focal hyaline fibrosis. Abnormal (underdeveloped) secretory endometrium with focal stromal breakdown (see comment). Benign cervix showing mild to moderate acute and chronic cervicitis at T-zone with focal erosion, accompanied by squamous metaplasia and reactive changes. Benign bilateral fallopian tubes with fimbriated end, showing paratubal cyst and focal tubal epithelial hyperplasia. No malignancy, dysplasia or epithelial atypia identified. Comment These changes are nonspecific and may reflect luteal phase abnormalities (failure of secretory endometrium to fully mature due to corpus luteum deficiency), exogenous progestins or endometrium near polyp or overlying leiomyoma. Clinical correlation recommended. Report Electronically Signed Out ao/3Aarabella Rodrigez MD Interpretation performed at [facility], [address] [place] [address], License number: [id number]. Clinical History Abnormal uterine bleeding. Gross Description Received in formalin labeled SUSANA, uterus, bilateral tubes is a hysterectomy specimen consisting of uterus with attached cervix and detached fimbriated fallopian tube segments. The 158 g uterus is 11.0 cm from fundus to ectocervical mucosa, 6.5 cm from cornu to cornu and 4.8 cm from anterior to posterior. The serosa is pham-weller, smooth and glistening. The cervix is 4.5 cm in length by 3.4 cm in diameter. The ectocervical mucosa is pink-pham, focally hemorrhagic and glistening, with a centrally located 0.8 cm slitlike os. The uterus is bivalved to reveal a triangular endometrial cavity, 4.5 cm in length by 2.2 cm in width, sectioned to reveal a depth of 0.1 cm. The 2.0 cm myometrium is pham and moderately trabeculated with three well-circumscribed intramural nodules, 0.7, 1.0 and 1.5 cm. The detached fimbriated fallopian tube segments are 3.0 x 0.4 cm and 1.0 x 0.3 cm. Both have a pham-weller, smooth serosa and both are sectioned to reveal a pinpoint lumen. Stonemason Apprentice sections are submitted in cassettes A-K, as follows: A- anterior cervix B- posterior cervix C- posterior serosal shaves D-E- anterior full thickness sections F-G- posterior full thickness sections H- fimbriated end of the shorter fallopian tube, serially sectioned I- cross sections of the shorter fallopian tube J- fimbriated end of the longer fallopian tube, serially sectioned K- cross sections of the longer fallopian tube (11,ss,[id number], m6) [facility]04/26/2023EAK Specimen(s) Received Uterus, cervix, bilateral fallopian tubes Fee Codes(s): 1; 19514 COVID/FLU/RSV RT-PCRon 11-21 SARS-CoV-2 (COVID-19) RNA JAMIE+probe Ql (Unsp spec) Positive [employer] Other COVID/FLU/RSV RT-PCR Negative [employer] Other PROF 14(COMP METB)on 022 Albumin [Mass/Vol] 3.3 g/dL Critically low 3.4-5.0 Th [facility] Comment on above: Performed By: #### C MP #### [facility] [address] [place] [address] Dr. Sharif Sierra Albumin/Globulin [Mass ratio] 0.7 {ratio} Normal [facility] Comment on above: Performed By: #### C MP #### [facility] [address] [address] [address] Sharif Sierra ALP [Catalytic activity/Vol] 164 U/L Critically high 46-116 [facility] Comment on above: Performed By: #### C MP #### [facility] [address] [place] [address] Dr. Sharif Sierra ALT [Catalytic activity/Vol] 40 U/L Normal 14-59 [facility] Comment on above: Performed By: #### C MP #### [facility] [address] [place] [address] Dr. Sharif Sierra Anion gap [Moles/Vol] 10.4 mmol/L Normal [facility] Comment on above: Performed By: #### C MP #### [facility] [address] [place] [address] Dr. Sharif Sierra AST [Catalytic activity/Vol] 19 U/L Normal 15-37 [facility] Comment on above: Performed By: #### C MP #### [facility] [address] [place] [address] Dr. Sharif Sierra Bilirubin [Mass/Vol] 0.2 mg/dL Normal 0.2-1.0 [facility] Comment on above: Performed By: #### C MP #### [facility] [address] [place] [address] Dr. Sharif Sierra Calcium [Mass/Vol] 9.0 mg/dL Normal 8.5-10.1 [facility] Comment on above: Performed By: #### C MP #### [facility] [address] [place] [address] Dr. Sharif Sierra Chloride [Moles/Vol] 104 mmol/L Normal 98-107 [facility] Comment on above: Performed By: #### C MP #### [facility] [address] [address] [address] Sharif Sierra CO2 [Moles/Vol] 29.5 mmol/L Normal 21.0-32.0 [facility] Comment on above: Performed By: #### C MP #### [facility] [address] [address] [address] Sharif Sierra Creatinine [Mass/Vol] 0.96 mg/dL Normal 0.55-1.02 [facility] Comment on above: Performed By: #### C MP #### [facility] [address] [address] [address] Sharif Sierra EGFR-AF DUTCH >60 Normal >=60 [facility] Comment on above: Performed By: #### C MP #### [facility] [address] [place] [address] Dr. Sharif Sierra EGFR-NON AF DUTCH >60 Normal >=60 [facility] Comment on above: Performed By: #### C MP #### [facility] [address] [place] [address] Dr. Sharif Sierra Globulin (S) [Mass/Vol] 4.8 g/dL Normal [facility] Comment on above: Performed By: #### C MP #### [facility] [address] [place] [address] Dr. Sharif Sierra Glucose [Mass/Vol] 98 mg/dL Normal 74-106 [facility] Comment on above: Performed By: #### C MP #### [facility] [address] [place] [address] Dr. Sharif Sierra Potassium [Moles/Vol] 3.9 mmol/L Normal 3.5-5.1 [facility] Comment on above: Performed By: #### C MP #### [facility] [address] [place] [address] Dr. Sharif Sierra Protein [Mass/Vol] 8.1 g/dL Normal 6.4-8.2 [facility] Comment on above: Performed By: #### C MP #### [facility] [address] [address] [address] Sharif Sierra Sodium [Moles/Vol] 140 mmol/L Normal 136-145 [facility] Comment on above: Performed By: #### C MP #### [facility] [address] [place] [address] Dr. Sharif Sierra Urea nitrogen [Mass/Vol] 8.0 mg/dL Normal 7.0-18.0 [facility] Comment on above: Performed By: #### C MP #### [facility] [address] [place] [address] Dr. Sharif Sierra Urea nitrogen/Creatinin e [Mass ratio] 8.3 mg/mg Normal [facility] Comment on above: Performed By: #### C MP #### [facility] [address] [place] [address] Dr. Sharif Sierra CARDIAC EMETERIO ADMITon 022 CK [Catalytic activity/Vol] 34 U/L Normal 30-135 [facility] Comment on above: Performed By: #### C GIOVANY SANDOVAL #### [facility] [address] [place] [address] Dr. Sharif Sierra CK.MB [Mass/Vol] ng/mL Normal <=2.37 [facility] Comment on above: Performed By: #### C JOSE SANDOVALDM #### [facility] [address] [place] [address] Dr. Sharif Sierra HSTROP 4.5 pg/mL Normal 4.0-35.5 [facility] Comment on above: Result Comment: CUT- OFF POINTS HAVE BEEN ESTABLISHED BASED ON THE FOURTH UNIVERSAL DEFINITIONS OF MYOCARDIAL INFARCTION. THE UPPER REFERENCE LIMIT (URL) OF TROPONIN, DEFINED THE 99TH PERCENTILE OF cTnI DISTRIBUTION IN A REFERENCE POPULATION, HAS BEEN CONFIRMED THE DECISION THRESHOLD FOR [place] DIAGNOSIS. Performed By: #### C JAIME, JOSEDM #### [facility] [address] [place] [address] Dr. Sharif Sierra RAFFAELE 27.0 ng/mL Normal <=61.5 [facility] Comment on above: Performed By: #### C JAIME, JOSEDM #### [facility] [address] [address] [address] Sharif Sierra CBC AUTO DIFFon 05-29-2021 BASO # 0.1 103/ul Normal 0.0-0.1 [facility] Comment on above: Performed By: #### C BC #### [facility] [address] [address] [address] Sharif Sierra Basophils/100 WBC (Bld) 0.7 % Normal 0.2-2.0 [facility] Comment on above: Performed By: #### C BC #### [facility] [address] [address] [address] Sharif Sierra EO # 0.1 103/ul Normal 0.0-0.7 [facility] Comment on above: Performed By: #### C BC #### [facility] [address] [place] [address] Dr. Sharif Sierra Eosinophils/100 WBC (Bld) 0.4 % Critically low 0.9-7.0 [facility] Comment on above: Performed By: #### C BC #### [facility] [address] [place] [address] Dr. Sharif Sierra Erythrocyte distribution width (RBC) [Ratio] 18.6 % Critically high 11.0-15.0 [facility] Comment on above: Performed By: #### C BC #### [facility] [address] [place] [address] Dr. Sharif Sierra Hematocrit (Bld) [Volume fraction] 38.5 % Normal 36.0-48.0 [facility] Comment on above: Performed By: #### C BC #### [facility] [address] [place] [address] Dr. Sharif Sierra Hemoglobin (Bld) [Mass/Vol] 12.5 g/dL Normal 12.0-16.0 [facility] Comment on above: Performed By: #### C BC #### [facility] [address] [place] [address] Dr. Sharif Sierra IG # 0.07 10e3/ul Critically high 0.00-0.[address] [facility] Comment on above: Performed By: #### C BC #### [facility] [address] [place] [address] Dr. Sharif Sierra IG % 0.4 % Normal 0.0-0.5 [facility] Comment on above: Performed By: #### C BC #### [facility] [address] [place] [address] Dr. Sharif Sierra LYMPH # 2.7 103/ul Normal 1.2-3.8 [facility] Comment on above: Performed By: #### C BC #### [facility] [address] [place] [address] Dr. Sharif Sierra Lymphocytes/100 WBC (Bld) 17.0 % Critically low 20.5-60.0 [facility] Comment on above: Performed By: #### C BC #### [facility] [address] [place] [address] Dr. Sharif Sierra MANUAL DIFF REQ NO Normal [facility] Comment on above: Performed By: #### C BC #### [facility] [address] [place] [address] Dr. Sharif Sierra MCH (RBC) [Entitic mass] 26.5 pg Critically low 26.7-34.0 [facility] Comment on above: Performed By: #### C BC #### [facility] [address] [place] [address] Dr. Sharif Sierra MCHC (RBC) [Mass/Vol] 32.5 g/dL Normal 29.9-35.2 [facility] Comment on above: Performed By: #### C BC #### [facility] [address] [place] [address] Dr. Sharif Sierra MCV (RBC) [Entitic vol] 81.6 fL Normal 81.0-99.0 [facility] Comment on above: Performed By: #### C BC #### [facility] [address] [place] [address] Dr. Sharif Sierra MONO # 1.5 103/ul Critically high 0.3-0.8 [facility] Comment on above: Performed By: #### C BC #### [facility] [address] [place] [address] Dr. Sharif Sierra Monocytes/100 WBC (Bld) 9.3 % Normal 1.7-12.0 [facility] Comment on above: Performed By: #### C BC #### [facility] [address] [place] [address] Dr. Sharif Sierra NEUT # 11.4 103/ul Critically high 1.4-6.5 [facility] Comment on above: Performed By: #### C BC #### [facility] [address] [place] [address] Dr. Sharif Sierra Neutrophils/100 WBC (Bld) 72.2 % Normal 43.0-75.0 [facility] Comment on above: Performed By: #### C BC #### [facility] [address] [place] [address] Dr. Sharif Sierra Platelet mean volume (Bld) [Entitic vol] 11.4 fL Normal 9.5-13.5 [facility] Comment on above: Performed By: #### C BC #### [facility] [address] [place] [address] Dr. Sharif Sierra PLT 306 103/ul Normal 150-450 [facility] Comment on above: Performed By: #### C BC #### [facility] [address] [place] [address] Dr. Sharif Sierra RBC 4.72 106/ul Normal 4.20-5.40 [facility] Comment on above: Performed By: #### C BC #### [facility] [address] [place] [address] Dr. Sharif Sierra WBC 15.8 103/ul Critically high 4.0-11.0 [facility] Comment on above: Performed By: #### C BC #### [facility] [address] [place] [address] Dr. Sharif Sierra D-DIMERon 05-29-2021 D-DIMER 0.33 mg/L FEU Normal 0.19-0.50 [facility] Comment on above: Performed By: #### D DIM #### [facility] [address] [place] [address] Dr. Sharif Sierra D-DIMER COMMENTS SEE BELOW Normal [facility] Comment on above: Result Comment: Incr eases in D-Dimer concentration observed with thromboembolic events can be variable due to localization, size, and age of the thrombus. Therefore, a thromboembolic event cannot be diagnosed with certainty on the basis of the reference range. D-Dimers may also be elevated for a variety of disorders including: advanced age, , coronary disease, cancer, liver disease, infection, inflammation, hematoma, DIC, trauma, post-surgery, diabetes, thrombolytic or anticoagulant therapy, stress, and generalized hospitalization. Performed By: #### D DIM #### [facility] [address] [place] [address] Dr. Sharif Sierra PROF 14(COMP METB)on 022 Albumin [Mass/Vol] 3.2 g/dL Critically low 3.5-5.0 [facility] Comment on above: Performed By: #### C GIOVANY SANDOVAL #### [facility] [address] [place] [address] Dr. Sharif Sierra Albumin/Globulin [Mass ratio] 0.8 {ratio} Normal [facility] Comment on above: Performed By: #### C GIOVANY SANDOVAL #### [facility] [address] [place] [address] Dr. Sharif Sierra ALP [Catalytic activity/Vol] 128 U/L Critically high 38-126 [facility] Comment on above: Performed By: #### C JOSE SANDOVALDM #### [facility] [address] [place] [address] Dr. Sharif Sierra ALT [Catalytic activity/Vol] 14 U/L Normal 9-52 [facility] Comment on above: Performed By: #### C GIOVANY SANDOVAL #### [facility] [address] [place] [address] Dr. Sharif Sierra Anion gap [Moles/Vol] 8.5 mmol/L Normal [facility] Comment on above: Performed By: #### C GIOVANY SANDOVAL #### [facility] [address] [place] [address] Dr. Sharif Sierra AST [Catalytic activity/Vol] 3 U/L Critically low 14-36 [facility] Comment on above: Performed By: #### C JAIME, CMADM #### [facility] [address] [place] [address] Dr. Sharif Sierra Bilirubin [Mass/Vol] 0.2 mg/dL Normal 0.2-1.3 [facility] Comment on above: Performed By: #### C JAIME, CMADM #### [facility] [address] [place] [address] Dr. Sharif Sierra Calcium [Mass/Vol] 8.9 mg/dL Normal 8.4-10.2 [facility] Comment on above: Performed By: #### C JAIME, CMADM #### [facility] [address] [place] [address] Dr. Sharif Sierra Chloride [Moles/Vol] 101 mmol/L Normal 98-107 [facility] Comment on above: Performed By: #### C JAIME, CMADM #### [facility] [address] [place] [address] Dr. Sharif Sierra CO2 [Moles/Vol] 28.9 mmol/L Normal 22.0-30.0 [facility] Comment on above: Performed By: #### C JAIME, JOSEDM #### [facility] [address] [place] [address] Dr. Sharif Sierra Creatinine [Mass/Vol] 0.90 mg/dL Normal 0.52-1.04 [facility] Comment on above: Performed By: #### C JAIME, JOSEDM #### [facility] [address] [place] [address] Dr. Sharif Sierra EGFR-AF DUTCH >60 Normal >=60 [facility] Comment on above: Performed By: #### C JAIME, CMADM #### [facility] [address] [place] [address] Dr. Sharif Sierra EGFR-NON AF DUTCH >60 Normal >=60 [facility] Comment on above: Performed By: #### C JAIME, CMADM #### [facility] [address] [place] [address] Dr. Sharif Sierra Globulin (S) [Mass/Vol] 4.2 g/dL Normal [facility] Comment on above: Performed By: #### C JAIME, JOSEDM #### [facility] [address] [place] [address] Dr. Sharif Sierra Glucose [Mass/Vol] 109 mg/dL Critically high 74-106 [facility] Comment on above: Performed By: #### C JAIME, JOSEDM #### [facility] [address] [place] [address] Dr. Sharif Sierra Potassium [Moles/Vol] 3.4 mmol/L Normal 3.4-5.0 [facility] Comment on above: Performed By: #### C JAIME, JOSEDM #### [facility] [address] [place] [address] Dr. Sharif Sierra Protein [Mass/Vol] 7.4 g/dL Normal 6.1-8.2 [facility] Comment on above: Performed By: #### C JOSE SANDOVALDM #### [facility] [address] [place] [address] Dr. Sharif Sierra Sodium [Moles/Vol] 135 mmol/L Critically low 137-145 [facility] Comment on above: Performed By: #### C JAIME, JOSEDM #### [facility] [address] [place] [address] Dr. Sharif Sierra Urea nitrogen [Mass/Vol] 17.0 mg/dL Normal 7.0-17.0 [facility] Comment on above: Performed By: #### C JAIME, JOSEDM #### [facility] [address] [place] [address] Dr. Sharif Sierra Urea nitrogen/Creatinin e [Mass ratio] 18.9 mg/mg Normal [facility] Comment on above: Performed By: #### C JAIME, JOSEDM #### [facility] [address] [place] [address] Dr. Sharif Sierra TROPONIN, HIGH SENSITIVITYon 05-29-2021 HSTROP 5.4 pg/mL Normal 4.0-35.5 [facility] Comment on above: Result Comment: CUT- OFF POINTS HAVE BEEN ESTABLISHED BASED ON THE FOURTH UNIVERSAL DEFINITIONS OF MYOCARDIAL INFARCTION. THE UPPER REFERENCE LIMIT (URL) OF TROPONIN, DEFINED THE 99TH PERCENTILE OF cTnI DISTRIBUTION IN A REFERENCE POPULATION, HAS BEEN CONFIRMED THE DECISION THRESHOLD FOR [place] DIAGNOSIS. Performed By: #### H STROPN #### [facility] [address] [place] [address] Dr. Sharif Sierra XR CHEST 1 Von 05-29-2021 SARS-CoV-2 (COVID-19) Ab IA Ql EXAM: Portable chest REASON FOR EXAM: Chest pain. Positive Covid 19 test on 05/19/2021. TECHNIQUE: A portable frontal view of the chest was obtained. COMPARISON: None. FINDINGS: The lungs are well-inflated and clear. There is scattered calcified granulomata. The heart and mediastinum are normal. There is no mass or pathologic adenopathy. Osseous structures are normal. IMPRESSION: No acute cardiopulmonary process. Electronically authenticated by: KAROL LANDEROS Date: 2021-05-29 08:58 Normal [facility] COVID Quick Testingon 2021 Result Positive [employer] Other CBC AUTO DIFFon 03-13-2021 BASO # 0.1 103/ul Normal 0.0-0.1 [facility] Comment on above: Performed By: #### C BC #### [facility] [address] [place] [address] Dr. Sharif Sierra Basophils/100 WBC (Bld) 1.0 % Normal 0.2-2.0 [facility] Comment on above: Performed By: #### C BC #### [facility] [address] [place] [address] Dr. Sharif Sierra EO # 0.1 103/ul Normal 0.0-0.7 [facility] Comment on above: Performed By: #### C BC #### [facility] [address] [place] [address] Dr. Sharif Sierra Eosinophils/100 WBC (Bld) 0.6 % Critically low 0.9-7.0 [facility] Comment on above: Performed By: #### C BC #### [facility] [address] [place] [address] Dr. Sharif Sierra Erythrocyte distribution width (RBC) [Ratio] 16.9 % Critically high 11.0-15.0 [facility] Comment on above: Performed By: #### C BC #### [facility] [address] [place] [address] Dr. Sharif Sierra Hematocrit (Bld) [Volume fraction] 35.5 % Critically low 36.0-48.0 [facility] Comment on above: Performed By: #### C BC #### [facility] [address] [place] [address] Dr. Sharif Sierra Hemoglobin (Bld) [Mass/Vol] 10.6 g/dL Critically low 12.0-16.0 [facility] Comment on above: Performed By: #### C BC #### [facility] [address] [place] [address] Dr. Sharif Sierra IG # 0.09 10e3/ul Critically high 0.00-0.[address] [facility] Comment on above: Performed By: #### C BC #### [facility] [address] [place] [address] Dr. Sharif Sierra IG % 0.7 % Critically high 0.0-0.5 [facility] Comment on above: Performed By: #### C BC #### [facility] [address] [place] [address] Dr. Sharif Sierra LYMPH # 4.0 103/ul Critically high 1.2-3.8 [facility] Comment on above: Performed By: #### C BC #### [facility] [address] [place] [address] Dr. Sharif Sierra Lymphocytes/100 WBC (Bld) 32.7 % Normal 20.5-60.0 [facility] Comment on above: Performed By: #### C BC #### [facility] [address] [place] [address] Dr. Sharif Sierra MANUAL DIFF REQ NO Normal [facility] Comment on above: Performed By: #### C BC #### [facility] [address] [place] [address] Dr. Sharif Sierra MCH (RBC) [Entitic mass] 24.1 pg Critically low 26.7-34.0 [facility] Comment on above: Performed By: #### C BC #### [facility] [address] [place] [address] Dr. Sharif Sierra MCHC (RBC) [Mass/Vol] 29.9 g/dL Normal 29.9-35.2 [facility] Comment on above: Performed By: #### C BC #### [facility] [address] [place] [address] Dr. Sharif Sierra MCV (RBC) [Entitic vol] 80.9 fL Critically low 81.0-99.0 [facility] Comment on above: Performed By: #### C BC #### [facility] [address] [place] [address] Dr. Sharif Sierra MONO # 1.5 103/ul Critically high 0.3-0.8 [facility] Comment on above: Performed By: #### C BC #### [facility] [address] [place] [address] Dr. Sharif Sierra Monocytes/100 WBC (Bld) 12.1 % Critically high 1.7-12.0 [facility] Comment on above: Performed By: #### C BC #### [facility] [address] [place] [address] Dr. Sharif Sierra NEUT # 6.5 103/ul Normal 1.4-6.5 [facility] Comment on above: Performed By: #### C BC #### [facility] [address] [place] [address] Dr. Sharif Sierra Neutrophils/100 WBC (Bld) 52.9 % Normal 43.0-75.0 [facility] Comment on above: Performed By: #### C BC #### [facility] [address] [place] [address] Dr. Sharif Sierra Platelet mean volume (Bld) [Entitic vol] 12.4 fL Normal 9.5-13.5 [facility] Comment on above: Performed By: #### C BC #### [facility] [address] [place] [address] Dr. Sharif Sierra PLT 375 103/ul Normal 150-450 [facility] Comment on above: Performed By: #### C BC #### [facility] [address] [place] [address] Dr. Sharif Sierra RBC 4.39 106/ul Normal 4.20-5.40 [facility] Comment on above: Performed By: #### C BC #### [facility] [address] [place] [address] Dr. Sharif Sierra WBC 12.2 103/ul Critically high 4.0-11.0 [facility] Comment on above: Performed By: #### C BC #### [facility] [address] [place] [address] Dr. Sharif Sierra PROF 14(COMP METB)on 021 Albumin [Mass/Vol] 3.1 g/dL Critically low 3.5-5.0 [facility] Comment on above: Performed By: #### C MP #### [facility] [address] [place] [address] Dr. Sharif Sierra Albumin/Globulin [Mass ratio] 0.7 {ratio} Normal [facility] Comment on above: Performed By: #### C MP #### [facility] [address] [place] [address] Dr. Sharif Sierra ALP [Catalytic activity/Vol] 120 U/L Normal 38-126 [facility] Comment on above: Performed By: #### C MP #### [facility] [address] [place] [address] Dr. Sharif Sierra ALT [Catalytic activity/Vol] 15 U/L Normal 9-52 [facility] Comment on above: Performed By: #### C MP #### [facility] [address] [place] [address] Dr. Sharif Sierra Anion gap [Moles/Vol] 11.7 mmol/L Normal [facility] Comment on above: Performed By: #### C MP #### [facility] [address] [place] [address] Dr. Sharif Sierra AST [Catalytic activity/Vol] 15 U/L Normal 14-36 [facility] Comment on above: Performed By: #### C MP #### [facility] [address] [address] [address] Sharif Sierra Bilirubin [Mass/Vol] 0.2 mg/dL Normal 0.2-1.3 [facility] Comment on above: Performed By: #### C MP #### [facility] [address] [address] [address] Sharif Sierra Calcium [Mass/Vol] 8.8 mg/dL Normal 8.4-10.2 [facility] Comment on above: Performed By: #### C MP #### [facility] [address] [address] [address] Sharif Sierra Chloride [Moles/Vol] 102 mmol/L Normal 98-107 [facility] Comment on above: Performed By: #### C MP #### [facility] [address] [address] [address] Sharif Sierra CO2 [Moles/Vol] 29.2 mmol/L Normal 22.0-30.0 [facility] Comment on above: Performed By: #### C MP #### [facility] [address] [address] [address] Sharif Sierra Creatinine [Mass/Vol] 0.93 mg/dL Normal 0.52-1.04 [facility] Comment on above: Performed By: #### C MP #### [facility] [address] [address] [address] Sharif Sierra EGFR-AF DUTCH >60 Normal >=60 [facility] Comment on above: Performed By: #### C MP #### [facility] [address] [address] [address] Sharif Sierra EGFR-NON AF DUTCH >60 Normal >=60 [facility] Comment on above: Performed By: #### C MP #### [facility] [address] [address] [address] Sharif Sierra Globulin (S) [Mass/Vol] 4.5 g/dL Normal [facility] Comment on above: Performed By: #### C MP #### [facility] [address] [address] [address] Sharif Sierra Glucose [Mass/Vol] 83 mg/dL Normal 74-106 [facility] Comment on above: Performed By: #### C MP #### [facility] [address] [address] [address] Sharif Sierra Potassium [Moles/Vol] 3.9 mmol/L Normal 3.4-5.0 [facility] Comment on above: Performed By: #### C MP #### [facility] [address] [address] [address] Sharif Sierra Protein [Mass/Vol] 7.6 g/dL Normal 6.1-8.2 [facility] Comment on above: Performed By: #### C MP #### [facility] [address] [address] [address] Sharif Sierra Sodium [Moles/Vol] 139 mmol/L Normal 137-145 [facility] Comment on above: Performed By: #### C MP #### [facility] [address] [address] [address] Sharif Sierra Urea nitrogen [Mass/Vol] 8.0 mg/dL Normal 7.0-17.0 [facility] Comment on above: Performed By: #### C MP #### [facility] [address] [address] [address] Sharif Sierra Urea nitrogen/Creatinin e [Mass ratio] 8.6 mg/mg Normal [facility] Comment on above: Performed By: #### C MP #### [facility] [address] [address] [address] Sharif Sierra Covid-19 PCR (CVDTB)on 12-13 SARS-CoV-2 (COVID-19) RNA JAMIE+probe Ql (Unsp spec) Not detected Normal NOT DETECTED [facility] Comment on above: Result Comment: This test is not yet approved or cleared by the [place] FDA. When there are no FDA-approved or cleared tests available, and other criteria are met, FDA can make tests available under an emergency access mechanism called an Emergency Use Authorization (EUA). The EUA for this test is supported by the Equity Research Analyst of Health and Human Service's (HHS's) declaration that circumstances exist to justify the emergency use of in vitro diagnostics for the detection and/or diagnosis of the virus that causes COVID-19. This EUA will remain in effect (meaning this test can be used) for the duration of the COVID-19 declaration justifying emergency of IVDs, unless it is terminated or revoked by FDA (after which the test may no longer be used). When diagnostic testing is negative, the possibility of a false negative should be considered in the context of a patient's recent exposures and the presence of clinical signs and symptoms consistent with SARS-CoV-2. Performed By: #### C [facility] #### [facility] [address] [place] [address] Micky Vicente Vital Signs Date Time Vital Sign Value Performing Clinician Facility 06-08-2024 08:14-0500 Body height 154.9 cm Bambi Rodriguez TOOL AND FIXTURE REPAIRER-INTELLIGENCE OPERATIONS SPECIALIST Work Phone: [facility] 06-08-2024 08:14-0500 Body mass index (BMI) [Ratio] 46.67 kg/m2 Bambi Rodriguez APRN-INTELLIGENCE OPERATIONS SPECIALIST Work Phone: [facility] 06-08-2024 08:14-0500 Body temperature 98.2 [degF] Bambi Mcclainillo TOOL AND FIXTURE REPAIRER-INTELLIGENCE OPERATIONS SPECIALIST Work Phone: [facility] 06-08-2024 08:14-0500 Body weight 112.04 kg Bambi Rodriguez TOOL AND FIXTURE REPAIRER-INTELLIGENCE OPERATIONS SPECIALIST Work Phone: [facility] 06-08-2024 08:14-0500 Diastolic blood pressure 78 mm[Hg] Bambi Mcclainpaulette POOLEN-INTELLIGENCE OPERATIONS SPECIALIST Work Phone: [facility] 06-08-2024 08:14-0500 Heart rate 103 /min Bambi Mcclainpaulette POOLEN-INTELLIGENCE OPERATIONS SPECIALIST Work Phone: [facility] 06-08-2024 08:14-0500 Respiratory rate 18 /min Bambi Rodriguez TOOL AND FIXTURE REPAIRER-INTELLIGENCE OPERATIONS SPECIALIST Work Phone: [facility] 06-08-2024 08:14-0500 SaO2% (BldA) [Mass fraction] 99 % Bambi Rodriguez TOOL AND FIXTURE REPAIRER-INTELLIGENCE OPERATIONS SPECIALIST Work Phone: [facility] 06-08-2024 08:14-0500 Systolic blood pressure 120 mm[Hg] Bambi Rodriguez APRN-INTELLIGENCE OPERATIONS SPECIALIST Work Phone: [facility] 03-26-2024 09:52-0500 Body height 157.48 cm [facility] 03-26-2024 09:52-0500 Body mass index (BMI) [Ratio] 43.2 kg/m2 [facility] 03-26-2024 09:52-0500 Body weight 107.24 kg [facility] 03-26-2024 09:52-0500 Diastolic blood pressure 81 mm[Hg] [facility] 03-26-2024 09:52-0500 Heart rate 98 /min [facility] 03-26-2024 09:52-0500 Systolic blood pressure 116 mm[Hg] [facility] 06-06-2023 14:30-0500 Body height 154.9 cm Tavia Jacques MD Work Phone: [facility] 06-06-2023 14:30-0500 Body mass index (BMI) [Ratio] 43.93 kg/m2 Tavia Jacques MD Work Phone: [facility] 06-06-2023 14:30-0500 Body weight 105.46 kg Tavia Jacques MD Work Phone: [facility] 06-06-2023 14:30-0500 Diastolic blood pressure 86 mm[Hg] Tavia Jacques MD Work Phone: [facility] 06-06-2023 14:30-0500 Heart rate 102 /min Tavia Jacques MD Work Phone: [facility] 06-06-2023 14:30-0500 Systolic blood pressure 123 mm[Hg] [facility] Jacques [facility] 06-03-2023 11:24-0500 Body height 154.9 cm Bambi Rodriguez APRN-LUIS Work [facility] 06-03-2023 11:24-0500 Body mass index (BMI) [Ratio] 43.93 kg/m2 Bambi Rodriguez APRN-LUIS [facility] 06-03-2023 11:24-0500 Body temperature 98.6 [degF] Bambi Rodriguez APRN-LUIS Work [facility] 06-03-2023 11:24-0500 Body weight 105.46 kg Bambi Rodriguez APRN-LUIS Work [facility] 06-03-2023 11:24-0500 Diastolic blood pressure 80 mm[Hg] Bambi Rodriguez APRN-LUIS Work Phone[facility] 06-03-2023 11:24-0500 Heart rate 91 /min Bambi Rodriguez APRN-LUIS Work Phone[facility] 06-03-2023 11:24-0500 SaO2% (BldA) [Mass fraction] 97 % Bambi Rodriguez APRN-LUIS Work Phone: [employer] 06-03-2023 11:24-0500 Systolic blood pressure 110 mm[Hg] Bambi Rodriguez APRN-LUIS Work Phone: [employer] 11-21-2021 11:00-0400 Body height 157.48 cm Zulay Berrios Other [employer] Other 11-21-2021 11:00-0400 Body mass index (BMI) [Ratio] 39.32 kg/m2 Zulay Berrios Other [employer] Other 11-21-2021 11:00-0400 Body temperature 98.7 [degF] Zulay Berrios Other [employer] Other 11-21-2021 11:00-0400 Body weight 97.52 kg Zulay Berrios Other [employer] Other 11-21-2021 11:00-0400 Diastolic blood pressure 90 mm[Hg] Zulay Berrios Other [employer] Other 11-21-2021 11:00-0400 Respiratory rate 16 /min Zulay Berrios Other [employer] Other 11-21-2021 11:00-0400 SaO2% (BldA) [Mass fraction] 99 % Zulay Berrios Other [employer] Other 11-21-2021 11:00-0400 Systolic blood pressure 155 mm[Hg] Zulay Berrios Other [employer] Other 10-16-2021 11:00-0400 Body height 157.48 cm Zulay Berrios Other [employer] Other 10-16-2021 11:00-0400 Body mass index (BMI) [Ratio] 39.47 kg/m2 Zulay Berrios Other [employer] Other 10-16-2021 11:00-0400 Body temperature 98.2 [degF] Zulay Crooksault Other [employer] Other 10-16-2021 11:00-0400 Body weight 97.89 kg Zulay Crooksault Other [employer] Other 10-16-2021 11:00-0400 Diastolic blood pressure 109 mm[Hg] Zulay Berrios Other [employer] Other 10-16-2021 11:00-0400 Respiratory rate 16 /min Zulay Berrios Other [employer] Other 10-16-2021 11:00-0400 SaO2% (BldA) [Mass fraction] 98 % Zulay Berrios Other [employer] Other 10-16-2021 11:00-0400 Systolic blood pressure 162 mm[Hg] Zulay Berrios Other [employer] Other 05-18-2021 11:00-0500 Body height 157.48 cm Yris Shepard Other [employer] Other 05-18-2021 11:00-0500 Body mass index (BMI) [Ratio] 39.32 kg/m2 Yris Shepard Other [employer] Other 05-18-2021 11:00-0500 Body temperature 97.6 [degF] Yris Shepard Other [employer] Other 05-18-2021 11:00-0500 Body weight 97.52 kg Yris Shepard Other [employer] Other 05-18-2021 11:00-0500 Diastolic blood pressure 96 mm[Hg] Yris Sehpard Other [employer] Other 05-18-2021 11:00-0500 SaO2% (BldA) [Mass fraction] 98 % Yris Shepard Other [employer] Other 05-18-2021 11:00-0500 Systolic blood pressure 153 mm[Hg] Yris Shepard Other [employer] Other 03-13-2021 11:00-0400 Body height 157.48 cm Zulay Crooksault Other [employer] Other 03-13-2021 11:00-0400 Body mass index (BMI) [Ratio] 38.95 kg/m2 Zulay Agustina Other [employer] Other 03-13-2021 11:00-0400 Body temperature 97.8 [degF] Zulay Agustina Other [employer] Other 03-13-2021 11:00-0400 Body weight 96.62 kg Zulay Crooksault Other [employer] Other 03-13-2021 11:00-0400 Diastolic blood pressure 91 mm[Hg] Zulay Agustina Other [employer] Other 03-13-2021 11:00-0400 Respiratory rate 18 /min Zulay Agustina Other [employer] Other 03-13-2021 11:00-0400 SaO2% (BldA) [Mass fraction] 99 % Zulay Agustina Other [employer] Other 03-13-2021 11:00-0400 Systolic blood pressure 161 mm[Hg] Zulay Agustina Other [employer] Other Encounters Encounter Date Encounter Type Care Provider Facility Start: 06-08-2024 End: 06-08-2024 ambulatory BAMBI Gabriella RODRIGUEZ [facility] Start: 06-08-2024 End: 06-08-2024 Office outpatient visit 25 minutes Bambi Gabriella Rodriguez TOOL AND FIXTURE REPAIRER-INTELLIGENCE OPERATIONS SPECIALIST Work Phone: [facility] Comment on above: Benign essential HTN (Primary Dx); GERD without esophagitis; Hypokalemia; Anxiety and depression; Effusion, left knee Start: 05-13-2024 End: 05-14-2024 Refill Bambi Rodriguez TOOL AND FIXTURE REPAIRER-INTELLIGENCE OPERATIONS SPECIALIST Work Phone: [facility] Comment on above: Microcytic anemia Start: 04-15-2024 End: 04-15-2024 ambulatory Bambi Rodriguez Facility:[facility] Start: 03-26-2024 End: 03-26-2024 Patient encounter procedure Bambi Rodriguez ATMOSPHERIC PHYSICIST-C Work Phone: [facility] [place] Work Phone: Start: 03-26-2024 End: 03-26-2024 ambulatory Bambi Rodriguez ATMOSPHERIC PHYSICIST-C Work Phone: [facility] Work Phone: Start: 03-26-2024 End: 03-26-[address] [facility] Work Phone: Start: 03-26-2024 End: 03-26-2024 Patient encounter procedure [facility] Work Phone: Start: 03-15-2024 End: 03-16-2024 Refill Bambi Gabriella Rodriguez TOOL AND FIXTURE REPAIRER-INTELLIGENCE OPERATIONS SPECIALIST Work Phone: [facility] Comment on above: Benign essential HTN Start: 02-11-2024 End: 02-11-2024 Refill Bambi Gabriella Rodriguez TOOL AND FIXTURE REPAIRER-INTELLIGENCE OPERATIONS SPECIALIST Work Phone: [facility] Comment on above: GERD without esophag itis Start: 01-24-2024 End: 01-24-2024 Emergency department patient visit [facility] Start: 12-04-2023 End: 12-04-2023 ambulatory [facility] Start: 12-04-2023 Encounter for genera l adult medical examination without abnormal findings [facility] Start: 08-01-2023 Orders Only Bambi caldwell TOOL AND FIXTURE REPAIRER-INTELLIGENCE OPERATIONS SPECIALIST Work Phone: Mirela Saleh [facility] Start: 06-27-2023 Orders Only Bambi caldwell TOOL AND FIXTURE REPAIRER-INTELLIGENCE OPERATIONS SPECIALIST Work Phone: Mirela Saleh [facility] Start: 06-21-2023 Telephone encounter Ade Ruiz [facility] Start: 06-06-2023 End: 06-06-2023 Postop follow up visit related to original px Tavia Jacques MD Work Phone: [facility] Comment on above: Postop check (Primar y Dx) Start: 06-03-2023 End: 06-03-2023 Office outpatient visit 25 minutes Bambi J [facility] TOOL AND FIXTURE REPAIRER-INTELLIGENCE OPERATIONS SPECIALIST Work Phone: [facility] Comment on above: Benign essential HTN (Primary Dx); GERD without esophagitis; Anxiety and depression; Hypokalemia; Microcytic anemia Start: 06-18-2022 End: 06-18-2022 ambulatory Zulay Berrios Other [employer] Other Start: 06-18-2022 Telephone encounter Zulayara Adamsl t [facility] Start: 03-26-2022 End: 03-26-2022 ambulatory Zulayara Berrios Other [employer] Other Start: 03-26-2022 Telephone encounter Zulay Breaul t [facility] Start: 02-08-2022 End: 02-08-2022 ambulatory Zulayara Berrios Other [employer] Other Start: 02-08-2022 Telephone encounter Zulay Brejesical t [facility] Start: 11-21-2021 Office outpatient visit 15 minutes Zulayara Berrios [facility] Start: 11-21-2021 End: 11-22-2021 ambulatory ZULAYARA BERRIOS [employer] Other Start: 10-31-2021 End: 10-31-2021 ambulatory Zulayara Berrios Other [employer] Other Start: 10-31-2021 Telephone encounter Zulay Brejesical t [facility] Start: 10-29-2021 End: 10-29-2021 ambulatory Zulayara Berrios Other [employer] Other Start: 10-29-2021 Telephone encounter Zulay Breaul t [facility] Start: 10-16-2021 End: 10-16-2021 ambulatory Zulayara Berrios Other [employer] Other Start: 10-16-2021 Office outpatient visit 15 minutes Zulayara Berrios [facility] Start: 09-25-2021 End: 09-25-2021 ambulatory Zulayara Berrios Other [employer] Other Start: 09-25-2021 Telephone encounter Zulay Breaul t [facility] Start: 07-18-2021 End: 07-18-2021 ambulatory Zulayara Berrios Other [employer] Other Start: 07-18-2021 Telephone encounter Zulay Breaul t [facility] Start: 06-13-2021 End: 06-13-2021 ambulatory Zulayara Berrios Other [employer] Other Start: 06-13-2021 Telephone encounter Zulay sun [facility] Start: 06-01-2021 End: 06-01-2021 ambulatory Jean-Paul Owen Other [employer] Other Start: 06-01-2021 Telephone encounter Jean-Paul WILKERSON [facility] [employer] [facility] Start: 05-29-2021 End: 05-29-2021 ambulatory ANUP RODRIGUEZ Facility: Start: 05-18-2021 End: 05-18-2021 ambulatory Yris Shepard Other [employer] Other Start: 05-18-2021 Office outpatient visit 15 minutes Yris Shepard [facility] Start: 03-13-2021 Office outpatient visit 15 minutes Zulay Berrios [facility] Start: 03-13-2021 End: 03-14-2021 ambulatory ZULAY BERRIOS [place] [employer] Other Start: 01-09-2021 End: 01-10-2021 ambulatory ZULAY BERRIOS Facility: Procedures Date Procedure Procedure Detail Performing Clinician Start: 04-15-2024 Colonoscopy Bambi clifton TOOL AND FIXTURE REPAIRER-INTELLIGENCE OPERATIONS SPECIALIST Work Phone: Start: 12-04-2023 Adult depression scr eening assessment Bambi Rodriguez TOOL AND FIXTURE REPAIRER-INTELLIGENCE OPERATIONS SPECIALIST Work Phone: Start: 06-03-2023 Adult depression scr eening assessment Bambi Rodriguez TOOL AND FIXTURE REPAIRER-INTELLIGENCE OPERATIONS SPECIALIST Work Phone: Start: 03-26-2023 Microscopic observat ion [Identifier] in Cervix by Cyto stain Bambi Rodriguez TOOL AND FIXTURE REPAIRER-INTELLIGENCE OPERATIONS SPECIALIST Work Phone: Start: 12-19-2022 Colonoscopy Bambi Ca valentinoo TOOL AND FIXTURE REPAIRER-INTELLIGENCE OPERATIONS SPECIALIST Work Phone: Plan of Treatment Date Care Activity Detail Author Start: 04-15-2034 Screening for malignant neoplasm of colon Colonoscopy [facility] Start: 01-23-2034 DTaP,Tdap and Td Vaccines (2 - Td or Tdap) DTaP,Tdap and Td Vaccines (2 - Td or Tdap) [facility] Start: 12-19-2032 Screening for malignant neoplasm of colon Colonoscopy [facility] Start: 03-26-2026 Screening for malignant neoplasm of cervix Pap Smear [facility] Start: 06-08-2025 Adult BMI Screening Adult BMI Screening [facility] Start: 06-08-2025 [facility] Screening [facility] [facility] Start: 01-23-2025 Adult BMI Screening Adult BMI Screening [facility] Start: 01-23-2025 Tobacco Screening Tobacco Screening [facility] Start: 12-07-2024 End: 12-07-2024 Patient encounter procedure 12/07/2024 8:00 AM EDT Office Visit [facility] Internal Medicine - Family Medicine [address] [place] [address] Bambi Rodriguez, TOOL AND FIXTURE REPAIRER-INTELLIGENCE OPERATIONS SPECIALIST [address] [place] [address] [facility] Internal Medicine - Family Medicine Start: 12-03-2024 Adult BMI Follow Up Plan Adult BMI Follow Up Plan [facility] Start: 12-03-2024 Depression Screening Depression Screening [facility] Start: 06-08-2024 End: 06-08-2024 Patient encounter procedure 06/08/2024 8:00 AM EST [facility] [address] [place] [address] Bambi Rodriguez, TOOL AND FIXTURE REPAIRER-INTELLIGENCE OPERATIONS SPECIALIST [address] [place] [address] [facility] Internal Medicine - Family Medicine Start: 06-06-2024 Adult BMI Screening Adult BMI Screening [facility] Start: 06-03-2024 Adult BMI Follow Up Plan Adult BMI Follow Up Plan [facility] Start: 06-03-2024 Adult BMI Screening Adult BMI Screening [facility] Start: 06-03-2024 Depression Screening Depression Screening [facility] Start: 06-03-2024 Tobacco Screening Tobacco Screening [facility] Start: 03-26-2024 End: 03-26-2024 [facility] Start: 01-12-2024 Influenza vaccination Influenza Vaccine [facility] Start: 12-04-2023 End: 12-04-2023 Patient encounter procedure 12/04/2023 8:00 AM EDT Office Visit [facility] Internal Medicine - Family Medicine [address] [place] [address] Bambi Rodriguez, TOOL AND FIXTURE REPAIRER-INTELLIGENCE OPERATIONS SPECIALIST [address] [place] [address] [facility] Internal Medicine - Family Medicine Start: 07-19-2023 End: 07-19-2023 Patient encounter procedure 07/19/2023 11:00 AM EST Office Visit [facility] - Medical Oncology [address] [place] [phone] Rigo Najera MD [address] [place], [place] [id number] [facility] Start: 2023 End: 2023 ambulatory 2023 11:00 AM EST Support Visit [facility] - Medical Oncology [address] [place] [phone] [facility] Start: 06-06-2023 End: 06-06-2023 Patient encounter procedure 06/06/2023 2:50 PM EST Office Visit [facility] Obstetrics[facility]necology [address] [place] [address] Tavia Jacques MD [address] [place] [address] [facility] Start: 01-11-2023 Influenza vaccination Influenza Vaccine [facility] Start: 07-15-1994 DTaP,Tdap and Td Vaccines (1 - Tdap) DTaP,Tdap and Td Vaccines (1 - Tdap) [facility] Endomysial antibody IgA level [facility] Gliadin peptide IgA Ab [Units/volume] in Serum [facility] Gliadin peptide IgG Ab [Units/volume] in Serum [facility] IgA [Mass/volume] in Serum or Plasma [facility] Tissue transglutamin ase IgA Ab [Units/volume] in Serum [facility] Tissue transglutamin ase IgG Ab [Units/volume] in Serum [facility] Immunizations Immunization Date Immunization Notes Care Provider Fa cility 01-24-2024 tetanus toxoid, redu william diphtheria toxoid, and acellular pertussis vaccine, adsorbed Bambiprakash Rodriguez TOOL AND FIXTURE REPAIRER-INTELLIGENCE OPERATIONS SPECIALIST Work Phone: [facility] Payers Date Payer Category Payer Self-pay 2022 Medicaid [id number] 2022 Medicaid [id number] 2022 Blue Cross Blue [facility] Managed Care - Other ANTHEM [id number] 2022 Unknown ANTHEM BCBS OUT OF STATE PPO/TRUST [id number] 2022-Present [phone] [address] [place] [address] [id number] 2022 Unknown [id number] 1975 Unknown [id number] 593 1975 Unknown [id number]. 593 1975 Unknown [id number]. 593 1975 Unknown [id number]. 593 1975 Unknown [id number] [id number]. 1286 1975 Unknown [id number]. 1286 1975 Unknown [id number]. 1286 1959 Unknown [id number] 1959 Unknown [id number] Unknown [id number] 531 Unknown [id number] 531 Social History Date Type Detail Facility Unknown if ever smoked [employer] Other Start: 06-23-2020 End: 06-03-2023 Sex Assigned At [facility] Start: 09-22-2021 [facility] Start: 09-18-1991 End: 09-17-2021 History of tobacco use Current smoker [facility] Start: 09-18-1991 End: 09-17-2021 History of tobacco use Cigarette Smoker [facility] Start: 06-23-2020 End: 09-22-2021 Cigarettes smoked current (pack per day) - [facility] Start: 09-22-2021 Tobacco use and exposure Smokeless tobacco non-user [facility] Start: 06-03-2023 End: 06-08-2024 Alcohol intake Current non-drinker of alcohol (finding) [facility] Adolescent depressio n screening assessment 0 [facility] Start: 1975 Sex Assigned At Not on file [email or web address] Start: 12-16-2014 End: 03-27-2024 Sex Female (finding) [facility] Start: 1975 Sex Assigned At Female F [facility] Goals Date Patient Goal Desired Activity /State Personal health goal Comment on above: Formatting of this n ote might be different from the original. Evaluation of progress towards goal: Safe dc transition home with family support. Clinical Notes 05-18-2021 to 06-08-2024 Bambi Rodriguez APRN-INTELLIGENCE OPERATIONS SPECIALIST - 06/08/2024 8:00 AM EST Note Date & Type Note Facility 06-08-2024 History of Present illness Narrative Images from the original note were not included. [address] [facility] [address] SUBJECTIVE: Patient ID: Nadiya Meza is a 48 y.o. female. Chief Complaint Patient presents with Hypertension Depression Presents for follow up States she has been experiencing left knee pain. Awoke on morning and pain was present. Denies trauma. Went to [facility] on 06/01/24 due to the pain. She is currently using knee immobilizer and using crutches. No weight bearing to LLE. Has appointment with orthopedic today, Dr. Allison. Hypertension This is a chronic problem. The current episode started more than 1 year ago. The problem is controlled. Pertinent negatives include no chest pain, palpitations or shortness of breath. There are no associated agents to hypertension. Risk factors for coronary artery disease include obesity and family history. Past treatments include beta blockers and calcium channel blockers. The current treatment provides significant improvement. There are no compliance problems. Depression Visit: Follow-up Initial visit: Symptoms: no chest pain, no palpitations and no shortness of breath Follow-up visit: Symptoms: decreased concentration, depressed mood, irritability, malaise and muscle tension Frequency: Rarely Severity: Mild Current Treatment: SSRI's Response to treatment: Stable Heartburn She reports no chest pain, no globus sensation or no hoarse voice. This is a chronic problem. The current episode started more than 1 year ago. The problem occurs rarely. The problem has been resolved. The symptoms are aggravated by certain foods and stress. Pertinent negatives include no anemia, fatigue, melena, muscle weakness, orthopnea or weight loss. Risk factors include obesity. She has tried a PPI for the symptoms. The treatment provided significant relief. The following portions of the patient's history were reviewed and updated as appropriate: allergies, current medications, past family history, past medical history, past social history, past surgical history and problem list. Past Surgical History: Procedure Laterality Date BREAST BIOPSY Right 07/27/2016 FIBROADENOMA excisional BREAST LUMPECTOMY Right 2017? COLONOSCOPY N/A 12/19/2022 Performed by Jorge Preciado DO at [facility] CYSTOSCOPY N/A 04/26/2023 Performed by S[facility] Lopes [facility] at [facility]A 09/13/2021 Performed by Karol Thurman DO at [facility] HYSTERECTOMY SALPINGECTOMY N/A 04/26/2023 Performed by Sander Lopes MD at [facility] ENDOSCOPIC RETROGRADE CHOLANGIO-PANCREATOGRAPHY WITH STENT REMOVAL N/A 10/24/2021 Performed by Oswaldo Bentley MD at [facility] ERCP Left Lateral 09/15/2021 Performed by Oswaldo Bentley MD at [facility] HYSTERECTOMY 04/26/2023 TONSILLECTOMY AND ADENOIDECTOMY Childhood TUBAL LIGATION 1999 Past Medical History: Diagnosis Date Acute headache Allergic rhinitis Anemia 09/2021 Pt took self off iron, states didn't work Anxiety and depression Asthma has not used inhaler in a very long time Bile leak, postoperative 09/2021 Post cholecystectomy Cholecystitis, acute with cholelithiasis 09/2021 Chronic headache Daily GERD (gastroesophageal reflux disease) HTN (hypertension) Hypokalemia 09/2021 PONV (postoperative nausea and vomiting) Snores Was to get sleep study years ago, not done due to insurance Visual impairment Wears glasses Immunization History Administered Date(s) Administered Tdap 01/24/2024 REVIEW OF SYSTEMS: Review of Systems Constitutional: Negative for chills and fever. HENT: Negative. Eyes: Negative for visual disturbance. Respiratory: Negative for chest tightness. Gastrointestinal: Negative. Endocrine: Negative. Genitourinary: Negative for menstrual problem and pelvic pain. Musculoskeletal: Positive for arthralgias. Pain left knee Skin: Negative. Allergic/Immunologic: Negative. Neurological: Negative for syncope and facial asymmetry. Hematological: Does not bruise/bleed easily. Psychiatric/Behavioral: Negative. PHYSICAL EXAMINATION: Vitals: 06/08/24 0814 BP: 120/78 BP Site: Left Arm BP Postition: Sitting Pulse: 103 Resp: 18 Temp: 36.8 C (98.2 F) TempSrc: Oral SpO2: 99% Weight: 112 kg (247 lb) Height: 154.9 cm (5' 1 ) Patient noted to have elevated BMI and the following intervention(s) were applied: encouragement to exercise. Physical Exam Vitals and nursing note reviewed. Constitutional: General: She is not in acute distress. Appearance: She is well-developed. She is not diaphoretic. HENT: Head: Normocephalic and atraumatic. Right Ear: Tympanic membrane and external ear normal. Left Ear: Tympanic membrane and external ear normal. Nose: Nose normal. Mouth/Throat: Mouth: Mucous membranes are moist. Pharynx: No oropharyngeal exudate. Eyes: General: Right eye: No discharge. Left eye: No discharge. Conjunctiva/sclera: Conjunctivae normal. Pupils: Pupils are equal, round, and reactive to light. Neck: Thyroid: No thyromegaly. Vascular: No JVD. Cardiovascular: Rate and Rhythm: Normal rate and regular rhythm. Heart sounds: Normal heart sounds. No murmur heard. No friction rub. No gallop. Pulmonary: Effort: Pulmonary effort is normal. Breath sounds: Normal breath sounds. Abdominal: General: Bowel sounds are normal. There is no distension. Palpations: Abdomen is soft. There is no mass. Tenderness: There is no abdominal tenderness. Musculoskeletal: General: Tenderness present. Normal range of motion. Cervical back: Normal range of motion and neck supple. Left lower leg: Edema present. Comments: Left full knee immobilizer Lymphadenopathy: Cervical: No cervical adenopathy. Skin: General: Skin is warm and dry. Capillary Refill: Capillary refill takes less than 2 seconds. Neurological: Mental Status: She is alert and oriented to person, place, and time. Deep Tendon Reflexes: Reflexes are normal and symmetric. Psychiatric: Mood and Affect: Mood normal. Behavior: Behavior normal. Thought Content: Thought content normal. Judgment: Judgment normal. ASSESSMENT/PLAN: Nadiya was seen today for hypertension and depression. Diagnoses and all orders for this visit: Benign essential HTN - losartan (COZAAR) 100 mg tablet; Take 1 tablet (100 mg total) by mouth in the morning. Indications: high blood pressure. GERD without esophagitis - esomeprazole (NexIUM) 40 mg capsule; Take 1 capsule (40 mg total) by mouth every morning before breakfast. Hypokalemia - potassium chloride (K-TAB,KLOR-CON) 10 MEQ CR tablet; Take 1 tablet (10 mEq total) by mouth in the morning. Anxiety and depression - sertraline (ZOLOFT) 50 mg tablet; Take 1 tablet (50 mg total) by mouth once daily at bedtime Indications: anxiousness associated with depression. Effusion, left knee Depression Depression: Not at risk (12/04/2023) PHQ-2 PHQ-2 Score: 0 Stable with sertraline 50 mg oral daily 2. HTN Controlled 120/78 Continue metoprolol succinate 25 mg oral daily -losartan 100 mg oral daily 3. Mixed hyperlipidemia Continue rosuvastatin 10 mg oral daily 4. GERD Limit or avoid trigger foods and beverages. Consider weight loss. Continue esomeprazole 40 mg oral daily 5. Effusion left knee Went to [facility] on 06.01.24 for pain of left knee. Denies trauma. Is non-weight bearing, using crutches. Wearing left knee immobilizer. Has initial appointment with orthopedics today, Dr. Allison. Body mass index is 46.67 kg/m . Patient noted to have elevated BMI and the following intervention(s) were applied: Discussed current weight today. Consider healthy food choices, portion control. Avoid sugary beverages and high concentrated sweets. Routine exercise regimen encouraged. ALL QUESTIONS ANSWERED Total time spent was 30 minutes: Preparing to see the patient (e.g., review of tests) Obtaining and/or reviewing separately obtained history Performing a medically appropriate examination and/or evaluation Counseling and educating the patient/family/caregiver Ordering medications, tests, or procedures Follow-up: Annual With labs CHANTELLE Lopez 06/08/24 0853 documented in this encounter [facility] 03-26-2024 Evaluation note Authored March 26, 2024 10:06am 48-year-old female referred to the GI clinic for evaluation of GERD and diarrhea +chronic heartburn for years not controlled with Nexium 20 mg daily. +chronic diarrhea for years however it got worse since she had cholecystectomy a year ago. She had a colonoscopy a year ago which was unremarkable however no colonic biopsies were done as per patient -Will arrange for EGD to assess for Fournier's. Then we will likely increase PPI dose -Will get Labs including TSH, ESR, CRP, fecal calprotectin HIV ab, Celiac panel, fecal elastase and stool infectious workup -Will arrange for colonoscopy with random colonic biopsies to assess for microscopic colitis -Bile acid diarrhea could be contributing to patient's symptoms. If previous workup is unremarkable will consider cholestyramine [facility] Work Phone: [phone] 808-603502-09-2024 Miscellaneous Notes* Telephone Encounter - Ade Brooks - 06/21/2023 1:41 PM EST CANCELED FOLLOW UP WITH DR. NAJERA SHE IS NO LONGER ANEMIC AND HAD A HYSTERECTOMY. SHE WILL CALL TO RESCHEDULE IF NEEDED [facility] Telephone encounter Note* Telephone Encounter - Ade Brooks - 06/21/2023 1:41 PM EST CANCELED FOLLOW UP WITH DR. NAJERA SHE IS NO LONGER ANEMIC AND HAD A HYSTERECTOMY. SHE WILL CALL TO RESCHEDULE IF NEEDED [facility]01-25-2024 History of Present illness Narrative* Tavia Jacques MD - 06/06/2023 2:50 PM EST POSTOPERATIVE VISIT Nadiya Meza is a 47 y.o. s/p RAH/BSO, cysto. She is doing well. Her pain is well controlled. No vaginal bleeding. Using nightly estrogen cream. Medications Current Outpatient Medications: acetaminophen (TYLENOL) 325 mg tablet, Take 2 tablets (650 mg total) by mouth every 6 (six) hours as needed for pain., Disp: 100 tablet, Rfl: 2 albuterol (PROVENTIL HFA;VENTOLIN HFA) 90 mcg/actuation inhaler, Inhale 2 puffs every 6 (six) hoursas needed for wheezing., Disp: , Rfl: ascorbic acid (VITAMIN C) 500 mg tablet, Take 1 tablet (500 mg total) by mouth in the morning and 1tablet (500 mg total) in the evening. Take with meals., Disp: 60 tablet, Rfl: 3 esomeprazole (NexIUM) 40 mg capsule, Take 1 capsule (40 mg total) by mouth every morning before breakfast Indications: gastroesophageal reflux disease., Disp: 90 capsule, Rfl: 1 ferrous sulfate 325 (65 FE) mg EC tablet, Take 1 tablet (325 mg total) by mouth in the morning and 1 tablet (325 mg total) in the evening. Take with meals., Disp: 60 tablet, Rfl: 3 ibuprofen (MOTRIN) 800 mg tablet, Take 1 tablet (800 mg total) by mouth every 8 (eight) hours as needed for pain., Disp: 30 tablet, Rfl: 0 losartan (COZAAR) 100 mg tablet, Take 1 tablet (100 mg total) by mouth in the morning. Indications:high blood pressure., Disp: 90 tablet, Rfl: 1 metoprolol succinate XL (TOPROL XL) 25 mg 24 hr tablet, Take 1 tablet (25 mg total) by mouth in themorning and at bedtime., Disp: 180 tablet, Rfl: 1 potassium chloride (K-TAB,KLOR-CON) 10 MEQ CR tablet, Take 1 tablet (10 mEq total) by mouth in the morning., Disp: 90 tablet, Rfl: 1 sertraline (ZOLOFT) 50 mg tablet, Take 1 tablet (50 mg total) by mouth once daily at bedtime Indications: anxiousness associated with depression., Disp: 90 tablet, Rfl: 1 traZODone (DESYREL) 50 mg tablet, Take 1 tablet (50 mg total) by mouth nightly., Disp: 30 tablet, Rfl: 1 Physical Exam BP 123/86 Pulse 102 Ht 154.9 cm (5' 1 ) Wt 105.5 kg (232 lb 8 oz) LMP 04/19/2023 BMI 43.93 kg/m General: Patient is Awake, Alert, and Oriented Abd: soft, no guarding, non tender, no rebound and not distended Incision is Clean/dry/Intact with Suture Pelvic: vaginal cuff well approximated with no suture present. Intact on digital exam Ext: no edema and negative homans Review of pathology: Uterus, cervix and bilateral fallopian tubes, total hysterectomy and bilateral salpingectomy: Uterus (158 g) showing three intramural leiomyomas (0.7 to 1.5 cm) with focal hyaline fibrosis. Abnormal (underdeveloped) secretory endometrium with focal stromal breakdown (see comment). Benign cervix showing mild to moderate acute and chronic cervicitis at T-zone with focal erosion, accompanied by squamous metaplasia and reactive changes. Benign bilateral fallopian tubes with fimbriated end, showing paratubal cyst and focal tubal epithelial hyperplasia. No malignancy, dysplasia or epithelial atypia identified. A/P 47 y.o. s/p RAH/BSO, cysto Routine postoperative care - Meeting postop milestones - Pathology benign - continue 2 more weeks of listing precautions and pelvic rest. RTC annual with primary OBGYN Tavia Jacques MD [facility] History of Present illness Narrative* Bambi Rodriguez APRN-INTELLIGENCE OPERATIONS SPECIALIST - 06/03/2023 11:15 AM EST Images from the original note were not included. [address] [facility] [address] SUBJECTIVE: Patient ID: Nadiya Meza is a 47 y.o. female. Chief Complaint Patient presents with Hypertension Depression Presents for follow up Relates she had hysterectomy due to heavy menses in April. Is recovering well. Moods have been stable. Admits to having bad days at times but not often. Hypertension This is a chronic problem. The current episode started more than 1 year ago. The problem is controlled. Pertinent negatives include no chest pain, palpitations or shortness of breath. There are no associated agents to hypertension. Risk factors for coronary artery disease include obesity and familyhistory. Past treatments include beta blockers and calcium channel blockers. The current treatment provides significant improvement. There are no compliance problems. Depression Visit: Follow-up Initial visit: Symptoms: no chest pain, no palpitations and no shortness of breath Follow-up visit: Symptoms: decreased concentration, depressed mood, irritability, malaise and muscle tension Frequency: Rarely Severity: Mild Current Treatment: SSRI's Response to treatment: Stable Heartburn She reports no chest pain, no globus sensation or no hoarse voice. This is a chronic problem. The current episode started more than 1 year ago. The problem occurs rarely. The problem has been resolved. The symptoms are aggravated by certain foods and stress. Pertinent negatives include no anemia, fatigue, melena, muscle weakness, orthopnea or weight loss. Risk factors include obesity. She has tried a PPI for the symptoms. The treatment provided significant relief. The following portions of the patient's history were reviewed and updated as appropriate: allergies, current medications, past family history, past medical history, past social history, past surgicalhistory and problem list. Past Surgical History: Procedure Laterality Date BREAST BIOPSY Right 07/27/2016 FIBROADENOMA excisional BREAST LUMPECTOMY Right 2017? COLONOSCOPY N/A 12/19/2022 Performed by Jorge Preciado DO at [facility] CYSTOSCOPY N/A 04/26/2023 Performed by Sander Lopes MD at [facility] CHOLECYSTECTOMY N/A 09/13/2021 Performed by Karol Thurman DO at [facility] HY[facility] SALPINGECTOMY N/A 04/26/2023 Performed by Sander Lopes MD at [facility] ENDOSCOPIC RETROGRADE CHOLANGIO-PANCREATOGRAPHY WITH STENT REMOVAL N/A 10/24/2021 Performed by Oswaldo Bentley MD at [facility] ERCP Left Lateral 09/15/2021 Performed by Oswaldo Bentley MD at [facility] HYSTERECTOMY 04/26/2023 TONSILLECTOMY AND ADENOIDECTOMY Childhood TUBAL LIGATION 1999 Past Medical History: Diagnosis Date Acute headache Allergic rhinitis Anemia 09/2021 Pt took self off iron, states didn't work Anxiety and depression Asthma has not used inhaler in a very long time Bile leak, postoperative 09/2021 Post cholecystectomy Cholecystitis, acute with cholelithiasis 09/2021 Chronic headache Daily GERD (gastroesophageal reflux disease) HTN (hypertension) Hypokalemia 09/2021 PONV (postoperative nausea and vomiting) Snores Was to get sleep study years ago, not done due to insurance Visual impairment Wears glasses There is no immunization history on file for this patient. REVIEW OF SYSTEMS: Review of Systems Constitutional: Negative for chills, fatigue, fever and weight loss. HENT: Negative. Negative for hoarse voice. Eyes: Negative for visual disturbance. Respiratory: Negative for chest tightness and shortness of breath. Cardiovascular: Negative for chest pain and palpitations. Gastrointestinal: Negative. Negative for melena. Endocrine: Negative. Genitourinary: Negative for menstrual problem and pelvic pain. Musculoskeletal: Negative. Negative for muscle weakness. Skin: Negative. Allergic/Immunologic: Negative. Neurological: Negative for syncope and facial asymmetry. Hematological: Does not bruise/bleed easily. Psychiatric/Behavioral: Negative. PHYSICAL EXAMINATION: Vitals: 06/03/23 1124 BP: 110/80 BP Site: Left Arm BP Postition: Sitting Pulse: 91 Temp: 37 C (98.6 F) TempSrc: Tympanic SpO2: 97% Weight: 105.5 kg (232 lb 8 oz) Height: 154.9 cm (5' 1 ) Patient noted to have elevated BMI and the following intervention(s) were applied: encouragement toexercise. Physical Exam Vitals and nursing note reviewed. Constitutional: General: She is not in acute distress. Appearance: She is well-developed. She is not diaphoretic. HENT: Head: Normocephalic and atraumatic. Right Ear: Tympanic membrane and external ear normal. Left Ear: Tympanic membrane and external ear normal. Nose: Nose normal. Mouth/Throat: Mouth: Mucous membranes are moist. Pharynx: No oropharyngeal exudate. Eyes: General: Right eye: No discharge. Left eye: No discharge. Conjunctiva/sclera: Conjunctivae normal. Pupils: Pupils are equal, round, and reactive to light. Neck: Thyroid: No thyromegaly. Vascular: No JVD. Cardiovascular: Rate and Rhythm: Normal rate and regular rhythm. Heart sounds: Normal heart sounds. No murmur heard. No friction rub. No gallop. Pulmonary: Effort: Pulmonary effort is normal. Breath sounds: Normal breath sounds. Abdominal: General: Bowel sounds are normal. There is no distension. Palpations: Abdomen is soft. There is no mass. Tenderness: There is no abdominal tenderness. Musculoskeletal: General: Normal range of motion. Cervical back: Normal range of motion and neck supple. Lymphadenopathy: Cervical: No cervical adenopathy. Skin: General: Skin is warm and dry. Capillary Refill: Capillary refill takes less than 2 seconds. Neurological: Mental Status: She is alert and oriented to person, place, and time. Deep Tendon Reflexes: Reflexes are normal and symmetric. Psychiatric: Mood and Affect: Mood normal. Behavior: Behavior normal. Thought Content: Thought content normal. Judgment: Judgment normal. ASSESSMENT/PLAN: Nadiya was seen today for hypertension and depression. Diagnoses and all orders for this visit: Benign essential HTN - losartan (COZAAR) 100 mg tablet; Take 1 tablet (100 mg total) by mouth in the morning. Indications: high blood pressure. - metoprolol succinate XL (TOPROL XL) 25 mg 24 hr tablet; Take 1 tablet (25 mg total) by mouth in the morning and at bedtime. GERD without esophagitis - esomeprazole (NexIUM) 40 mg capsule; Take 1 capsule (40 mg total) by mouth every morning before breakfast Indications: gastroesophageal reflux disease. Anxiety and depression - sertraline (ZOLOFT) 50 mg tablet; Take 1 tablet (50 mg total) by mouth once daily at bedtime Indications: anxiousness associated with depression. Hypokalemia - potassium chloride (K-TAB,KLOR-CON) 10 MEQ CR tablet; Take 1 tablet (10 mEq total) by mouth in the morning. Microcytic anemia HTN Controlled 110/80 Continue losartan and metoprolol succinate XL 2. Depression and anxiety Depression: Not at risk (06/03/2023) PHQ-2 PHQ-2 Score: 0 Recent Concern: Depression - At risk (04/22/2023) PHQ-2 PHQ-2 Score: 6 Rates ZERO today Continue sertraline 50 mg oral daily Continue trazodone 50 mg oral nightly 3. Anemia Secondary to menorrhagia from menses. DaVinci Hysterectomy 04/26/23. Recovering well. CBC April 2023, normal hemoglobin and hematocrit Continue ferrous sulfate 325 mg current month until finished, then discontinue 4. GERD Limit or avoid trigger foods and beverages. Consider weight loss. Controlled Reorder esomeprazole 40 mg oral daily 5. Hypokalemia Kdur 10 mEq oral daily Last K+ 3.7. Stable ALL QUESTIONS ANSWERED Total time spent was 25 minutes: Preparing to see the patient (e.g., review of tests) Obtaining and/or reviewing separately obtained history Performing a medically appropriate examination and/or evaluation Counseling and educating the patient/family/caregiver Ordering medications, tests, or procedures Follow-up: 6 months CHANTELLE Lopez 06/03/23 1254 [facility]* Author Lraon [facility] Authored March 26, 2024 10:06am 48-year-old female referred to the GI clinic for evaluation of GERD and diarrhea +chronic heartburn for years not controlled with Nexium 20 mg daily. +chronic diarrhea for years however it got worse since she had cholecystectomy a year ago. She had a colonoscopy a year ago which was unremarkable however no colonic biopsies were done as per patient -Will arrange for EGD to assess for Fournier's. Then we will likely increase PPI dose -Will get Labs including TSH, ESR, CRP, fecal calprotectin HIV ab, Celiac panel, fecal elastase and stool infectious workup -Will arrange for colonoscopy with random colonic biopsies to assess for microscopic colitis -Bile acid diarrhea could be contributing to patient's symptoms. If previous workup is unremarkable will consider cholestyramine [facility] Work Phone: [phone] 400-874802-06-2023 Evaluation note* Encounter Date Diagnosis Assessment Notes Treatment Notes Treatment Clinical Notes Jun, Essential hypertension (ICD-10 - I10) [employer] Other 11-14-2022 Evaluation note* Encounter Date Diagnosis Assessment Notes Treatment Notes Treatment Clinical Notes Mar, Essential hypertension (ICD-10 - I10) [employer] Other 09-29-2022 Evaluation note* Encounter Date Diagnosis Assessment Notes Treatment Notes Treatment Clinical Notes Jan, Essential hypertension (ICD-10 - I10) [employer] Other 07-12-2022 Evaluation note* Encounter Date Diagnosis Assessment Notes Treatment Notes Treatment Clinical Notes Nov, Essential hypertension (ICD-10 - I10) Increased medications as discussed. If no improvement in symptoms blood pressure, we need discuss referral to help control BP Nov, LOREN (generalized anxiety disorder) (ICD-10 - F41.1) Continue current dose Nov, Nasal congestion (ICD-10 - R09.81) Nov, COVID-19 (ICD-10 - U07.1) Today you tested positive for the COVID virus. This mean you need to follow all [facility] [place] [place] guidelines found at [email or web address]. It is important to rest, increase fluids, and stay at home. Contact PCP and inform them of results. Medications like Mucinex, Cepacol, Tylenol, saline nasal spray are over the counter medications that can help with the symptoms. Current guidelines include staying home, having no fever above 100.4 for 24 hours without medication and having significant improvement of symptoms before you are allowed to stop your quarantine.. For full guidelines go to CDC. GOV. Contact primary care and ask for guidance is essential to follow up * EDUCATION HANDOUT GIVEN ON OTC TREATMENTS, FOLLOW UP AND WHEN TO SEEK EMERGENCY TREATMENT Nov, Other Additional time spent conducting pre-visit phone call, screening for symptoms, instructions on social distancing, application and removal of PPE, and cleaning of examination room, equipment and supplies was performed. Patient education given for testing methodology and results. Patient care instructions given in writing by [facility] [place] document. [employer] Other 06-06-2022 Evaluation note* Encounter Date Diagnosis Assessment Notes Treatment Notes Treatment Clinical Notes Oct, Essential hypertension (ICD-10 - I10) Added the Amlodapine to regimen since blood pressure continues to be elevated and you can't tolerate any water pills without it changing electolytes. We will start on lower lose and increase slowly [employer] Other 05-16-2022 Evaluation note* Encounter Date Diagnosis Assessment Notes Treatment Notes Treatment Clinical Notes September, Essential hypertension (ICD-10 - I10) [employer] Other 05-01-2022 History general Narrative - Reported* Type Description Date Medical History hypertension Medical History anxiety and depression Surgical History tubal ligation Surgical History lumpectomy, righ breast Surgical History lap cholecystectomy 09/2021 Hospitalization History see above [employer] Other 02-01-2022 Evaluation note* Encounter Date Diagnosis Assessment Notes Treatment Notes Treatment Clinical Notes Jun, Essential hypertension (ICD-10 - I10) [employer] Other 01-06-2022 Evaluation note* Encounter Date Diagnosis Assessment Notes Treatment Notes Treatment Clinical Notes May, Contact with and (suspected) exposure to other viral communicable diseases (ICD-10 - Z20.828) covid test positive, see above. May, COVID (ICD-10 - U07.1) Covid test pos in office today. Pt is to use inhaler she has at home as previously prescribed prn for cough and wheeze. Supportive care as directed. Push fluids and rest. Pt is to take otc antipyretic prn for fever and aches. Pt is to take otc cough suppressant prn for cough. They are to follow the recommended stay at home quarantine rules for 10 days from onset of sx and they are to avoid contact with others in the home. Pt is to be re-evaluated after tx if sx worsen or don't improve by pcp or UC. Discussed at length sx of resp distress that would indicate need for immediate ER tx. Sx include but not limited to worsening SOB, wheeze, dyspnea, difficulty swallowing or breathing, and chest pain. Go straight to ER for any of these sx. Pt is to call the office with any questions or concerns regarding dx and tx. Information sheet with test results, general info on covid virus, and info sheet about treatment at home and quarantine guidelines was provided to pt in office today. Pt was referred to PCP for chronic management. Pt understood and agreed to tx plan. May, Other Additional time spent conducting pre-visit phone call, screening for symptoms, instructions on social distancing, application and removal of PPE, and cleaning of examination room, equipment and supplies was preformed. Patient education given for testing methodology and results. Patient care instructions given in writting by [facility] [place] [facility] document. [employer] Other Evaluation noteNort [facility] Other Evaluation noteNo InformationNost. [facility] Other Evaluation note* Diagnosis Benign essential HTN- Primary GERD without esophagitis Esophageal reflux Anxiety and depression Hypokalemia Hypopotassemia Microcytic anemia Unspecified iron deficiency anemia documented [facility] this encounter [facility]* Diagnosis Postop check- Primary Follow-up examination, following unspecified surgery documented [facility] this encounter [facility]Evaluation [facility]* Diagnosis GERD without esophagitis Esophageal reflux documented in this encounter [facility]* Diagnosis Benign essential HTN documented in this encounter [facility]Evaluation [facility]* Diagnosis Microcytic anemia Unspecified iron deficiency anemia documented in this encounter [facility]* Diagnosis Benign essential HTN- Primary GERD without esophagitis Esophageal reflux Hypokalemia Hypopotassemia Anxiety and depression Effusion, left knee documented in this encounter [facility] CenterDermaMedicsHistory general Narrative - ReportedNost. louis [facility] Other History general Narrative - Reported* Type Description Date Medical History hypertension Medical History anxiety and depression Surgical History tubal ligation Surgical History lumpectomy, righ breast [employer] Other Instructions* Attachments The following attachments cannot be sent through Care Everywhere. * Depression (Mauritanian) * High blood pressure emergencies (Mauritanian) documented in this encounterRockingham [facility] HospitalBrandFiesta SystemInstructionsNot on file documented in this encounterRockingham Memorial HospitalBrandFiesta SystemInstructionsNot on file documented in this encounterProBrandFiesta SystemInstructionsNot on file documented in this encounterRockingham Memorial HospitalBrandFiesta SystemInstructionsNot on file documented in this encounterRockingham Memorial HospitalBrandFiesta SystemInstructions* Attachments The following attachments cannot be sent through Care Everywhere. * Depression in adults Discharge instructions (Mauritanian) documented in this encounterRockingham Memorial HospitalAR LLC Summary Purpose Family History No Family History Records Found Relationship Condition Age at Onset Recorded Date/T joanie father Unknown Malignant neoplasm Unknown Hypertension Unknown mother Hypertension Unknown Advance Directives No Advanced Directives Records FoundLatest Code Status on File Code Status Date Activated Date Inactivated Comments Full Code 09/15/2021 11:45 AM 09/17/2021 1:53 PM Code Status History Code Status Date Activated Date Inactivated Comments Full Code 09/13/2021 1:52 AM 09/15/2021 11:20 AM Date Activated Date Inactivated Comments 09/15/2021 11:45 AM 09/17/2021 1:53 PM Date Activated Date Inactivated Comments 09/13/2021 1:52 AM 09/15/2021 11:20 AM Advance Directive Response Recorded Date/ Time Advance Directives No August 18 4:51pm Chief Complaint and Reason for Visit Chief Complaint Admit Date Refer: GERD, loose stools March 26, 2024 9:19am Reason for Visit Admit Date GERD (gastroesophageal reflux disease) N ovember 2023 9:19am Loose stools March 26, 2024 9:19am Nausea & vomiting March 26, 2024 9:19am Chief Complaint Admit Date Refer: GERD, loose stools March 26, 2024 9:19am R19.5 R11.2 K21.9 March 26, 2024 2:39pm Additional Source Comments REASON FOR VISIT (unrecogniz ed section and content) Reason Comments Hypertension Depression Reason Comments Post-op Reason Comments Med Refill INFORMATION SOURCE (unrecogn ized section and content) DATE CREATED AUTHOR 11/29/2021 [facility] DATE CREATED AUTHOR AUTHOR'S ORGANIZ ATION 01/27/2024 [facility] DATE CREATED AUTHOR AUTHOR'S ORGANIZ ATION 04/23/2024 [facility] DATE CREATED AUTHOR AUTHOR'S ORGANIZ ATION 06/08/2024 [facility] Care Teams (unrecognized sec tion and content) [employer] Relationship Specialty Start Date End Date Bambi Rodriguez APRN-CNP [address] [place] [address] PCP - General Family Medicine 10/30/22 [employer] Relationship Specialty Start Date End Date Bambi Rodriguez APRN-CNP [address] [place] [address] PCP - General Family Medicine 10/30/22 [employer] Relationship Specialty Start Date End Date [facility]ambi Rodriguez [facility] [address] [place] [address] PCP - General Family Medicine 10/30/22 [employer] Relationship Specialty Start Date End Date Bambi Rodriguez APRN[facility] BO[facility] [address] [place] [address] PCP - General Family Medicine 10/30/22 [employer] Relationship Specialty Start Date End Date Bambi Rodriguez APRN[facility] [address] [place] [address] PCP - General Family Medicine 10/30/22 Team Status: Active Member Role Status Dates PRAVIN Lopez Primary Care Provider Active Team Status: Inactive Member Role Status Dates Laron Marquez MD Attending Provider Active Start: March 26, 2024 End: March 26, 2024 PRAVIN Lopez Primary Care Brayan vnicent Referring Provider Active Start: March 26, 2024 End: March 26, 2024 Team Status: Inactive Member Role Status Dates RPAVIN Lopez Primary Care Provider Active Start: March 26, 2024 End: March 26, 2024 Laron Marquez MD Attending Provider Active Start: March 26, 2024 End: March 26, 2024 [employer] Relationship Specialty Start Date End Date Bambi Rodriguez APRNSTATE [facility] [address] [place] [address] PCP - General Family Medicine 10/30/22 Goals (unrecognized section and content) Goals may be documented in a n alternate section FOR RECORDS PERTAINING TO PATIENTS WHO ARE OR HAVE BEEN ENROLLED IN A CHEMICAL DEPENDENCY/SUBSTANCEABUSE PROGRAM, SOME INFORMATION MAY BE OMITTED. This clinical summary was aggregated from multiple sources. Caution should be exercised in using it in the provision of clinical care. This summary normalizes information from multiple sources, and as a consequence, information in this document may materially change the coding, format and clinical context of patient data. In addition, data may be omitted in some cases. CLINICAL DECISIONS SHOULD BE BASED ON THE PRIMARY CLINICAL RECORDS. [facility] Linkedwith [facility]. provides no warranty or guarantee of the accuracy or completeness of information in this document.
== END 2024-06-24 08:17 | disposition home or self-care (01) ==
LOC: MRI 08:16
PROVIDERS: PCP Nurse Practitioner; Visit Provider Orthopaedic Surgery
DX: M23.92 Unspecified internal derangement of left knee (principal); S83.242A Other tear of medial meniscus, current injury, left knee, initial encounter; S83.522A Sprain of posterior cruciate ligament of left knee, initial encounter
CPT/HCPCS: 73721